=== PATIENT | female | born 1930 | race Caucasian/White ===

== ENCOUNTER → 2016-07-03 | Outpatient (CLI) | payer OTHER, MEDICARE | LOC: BHFA 10:45 | PROVIDERS: ATTEND Internal Medicine Cardiovascular Disease | DX: I48.91 Unspecified atrial fibrillation (principal); R06.02 Shortness of breath; I50.32 Chronic diastolic (congestive) heart failure; I27.2 Other secondary pulmonary hypertension; R53.83 Other fatigue ==

== ENCOUNTER → 2016-07-27 | Outpatient (CLI) | payer OTHER, MEDICARE | LOC: BHFA 14:45 | PROVIDERS: ATTEND Internal Medicine Cardiovascular Disease | DX: I48.91 Unspecified atrial fibrillation (principal) ==

== ENCOUNTER → 2016-11-01 | Outpatient (CLI) | payer OTHER, MEDICARE | LOC: FIMAGING 11:40 | PROVIDERS: ATTEND Internal Medicine Cardiovascular Disease | DX: I82.A22 Chronic embolism and thrombosis of left axillary vein (principal); I82.B22 Chronic embolism and thrombosis of left subclavian vein ==

== ENCOUNTER 2016-12-25 15:38 | Emergency (ER) | payer OTHER, MEDICARE ==
--- NOTE | 2016-12-25 16:03 | CPEKG ---
Heart Rate: 61 RR Interval: 984 QRSD Interval: 152 QT Interval: 468 QTC Interval: 472 QRS [place]: 242 T Wave [place]: 102 EKG Severity - ABNORMAL ECG - EKG Impression: AFIB/FLUTTER AND VENTRICULAR-PACED RHYTHM Electronically Signed By: Woody Birch 25-Dec-2016 18:35:20
--- NOTE | 2016-12-25 16:43 | EDPHY ---
H & P Time Seen by Provider: 12/25/16 16:40 HPI/ROS: Chief complaint. Dizziness HPI. Patient is a 86-year-old female with 1 week history of nausea and dizziness. No vomiting. Dizziness is worse with turning her head as well as trying to stand. She feels off balance and needing to hold onto something to walk. No headache. No change in her vision. She saw her PCP for this today and was referred to the emergency department. They did a urinalysis which was normal in the office. The patient has no chest pain or shortness of breath. She has not had fever or trauma. No abdominal pain though is nauseated. No similar symptoms previously. 6 weeks ago a new medication for pulmonary hypertension was added called opsumit though she has been taking this for 6 weeks and has only had the dizziness for the past 1 week. ROS Constitutional. no fever/chills, no weakness Eyes. no problems with vision ENT. no sore throat, no nasal drainage Cardiovascular. no chest pain Respiratory. no shortness of breath, no cough Abdominal. Nauseated without abdominal pain, vomiting, diarrhea . no problems urinating MS. no calf pain/swelling, no neck/back pain, no joint pain Skin. no rash Lymph. no swollen glands Neuro. Dizzy and off balance Past Medical/Surgical History: Past medical history significant for atrial fibrillation and she is on Pradaxa. Cholecystectomy, kidney stent, pulmonary hypertension, MA, CVA Social History: , nonsmoker, no alcohol Smoking Status: Never smoked Physical Exam: General Appearance: Alert pleasant well-developed female mild distress vital signs are stable. She is afebrile Eyes: Pupils equal and round no pallor or injection. There is no vertical or horizontal nystagmus present ENT, Mouth: Mucous membranes are moist. Respiratory: There are no retractions, lungs are clear to auscultation. Cardiovascular: Regular rate and rhythm. Gastrointestinal: Abdomen is soft and nontender, no masses, bowel sounds normal. Neurological: Awake and alert, sensory and motor exams grossly normal. Skin: Warm and dry, no rashes. Musculoskeletal: Neck is supple nontender. Extremities symmetrical, full range of motion. Psychiatric: Patient is oriented X 3, there is no agitation. Constitutional: Initial Vital Signs Temperature (C) 36.5 C 12/25/16 15:41 Heart Rate 70 12/25/16 15:41 Respiratory Rate 20 08/08/17 15:41 Blood Pressure 123/63 H 12/25/16 15:41 O2 Sat (%) 94 12/25/16 15:41 O2 Delivery Mode Nasal Cannula O2 (L/minute) 6 Allergies/Adverse Reactions: No Known Allergies Allergy (Verified 12/25/16 15:41) Home Medications: Medication Instructions Recorded Acetaminophen [Acetaminophen Extra 1,000 mg PO Q8 PRN 06/17/15 Strength] Calcium Carbonate [Oyster Shell 500 mg PO HS 06/17/15 Calcium 500 mg (*)] Cholecalciferol Vit D3 [Vitamin D3 5,000 units PO HS 06/17/15 (*)] DIVALPROEX SODIUM 250 mg PO BID 06/17/15 Dabigatran Etexilate Mesyl 75 mg PO BID 06/17/15 [Pradaxa 75 MG (RX)] Digoxin [Digox] 0.125 mg PO Q2D 06/17/15 Ferrous Sulfate [Ferrous Sulf 325 325 mg PO HS 06/17/15 MG (*)] HYDRALAZINE HCL 10 mg PO BID 06/17/15 Magnesium Oxide [Magnesium Oxide 400 mg PO HS 06/17/15 400 mg (*)] Potassium Chloride [POTASSIUM 10 meq PO DAILY 06/17/15 CHLORIDE] Riociguat [Adempas] 1.5 mg PO TID 06/17/15 VITAMIN B COMP W-C [BEE WITH C] 1 each PO HS 06/17/15 Furosemide [Lasix] 20 mg PO BID #60 tablet 06/21/15 Hydrocodone/APAP 5/325 [Roxie 1 - 2 tab PO Q6H PRN #20 tab 06/21/15 5/325] levOFLOXACIN 750 mg PO DAILY #3 tab 06/21/15 Meclizine HCl [Meclizine HCl 25 mg 25 mg PO TID PRN #10 tab 12/25/16 (RX,OTC)] Medical Decision Making - Diagnostics EKG Interpretation: EKG interpreted by me shows underlying atrial fibrillation/flutter. This is a ventricular paced rhythm. There is left axis deviation and intraventricular conduction delay. No significant ST elevation or depression. The ventricular response is 61 Imaging Results: Imaging Impressions Head CT 12/25/16 17:18 Impression: Elderly brain with atrophy and probable white matter small vessel disease. Negative for acute abnormality, specifically, no intracranial bleed. Results called and discussed with BALTA SIERRA M.D. on 12/25/2016 at 17:[address] reviewed by me and discussed with Dr. Pate shows atrophy but no evidence for CVA or intracranial bleeding Procedures: IV normal saline, monitor Zofran, meclizine ED Course/Re-evaluation: Re-evaluation at 6:30 p.m. patient is feeling much better. I sat her up and she has only minimal dizziness. We will road test the patient. The patient, her daughter, and I discussed imaging and lab results. Patient is ambulated using a wheelchair is a substitution for her walker and she does well. She feels well and feels well enough to go home. Patient, her daughter, and I discussed treatment plan including criteria for return and importance of follow-up and further evaluation. They expressed understanding and agreement Differential Diagnosis: I considered arrhythmia, electrolyte abnormality, intracranial bleeding, CVA. - Data Points Laboratory Results: Laboratory Results 12/25/16 16:50 12/25/16 16:50 12/25/16 12/25/16 12/25/16 16:50 16:50 16:50 WBC 5.22 10^3/uL 10^3/uL (3.80-9.50) RBC 4.09 10^6/uL L 10^6/uL (4.18-5.33) Hgb 13.2 g/dL g/dL (12.6-16.3) Hct 40.5 % % (38.0-47.0) MCV 99.0 fL fL (81.5-99.8) MCH 32.3 pg pg (27.9-34.1) MCHC 32.6 g/dL g/dL (32.4-36.7) RDW 14.4 % % (11.5-15.2) Plt Count 107 10^3/uL L 10^3/uL (150-400) MPV 11.2 fL fL (8.7-11.7) Neut % (Auto) 62.8 % % (39.3-74.2) Lymph % (Auto) 27.4 % % (15.0-45.0) [place] % (Auto) 6.5 % % (4.5-13.0) Eos % (Auto) 2.5 % % (0.6-7.6) Baso % (Auto) 0.6 % % (0.3-1.7) Nucleat RBC Rel Count 0.0 % % (0.0-0.2) Absolute Neuts (auto) 3.28 10^3/uL 10^3/uL (1.70-6.50) Absolute Lymphs (auto) 1.43 10^3/uL 10^3/uL (1.00-3.00) Absolute Monos (auto) 0.34 10^3/uL 10^3/uL (0.30-0.80) Absolute Eos (auto) 0.13 10^3/uL 10^3/uL (0.03-0.40) Absolute Basos (auto) 0.03 10^3/uL 10^3/uL (0.02-0.10) Absolute Nucleated RBC 0.00 10^3/uL 10^3/uL (0-0.01) Immature Gran % 0.2 % % (0.0-1.1) Immature Gran # 0.01 10^3/uL 10^3/uL (0.00-0.10) PT 17.5 SEC H SEC (12.0-15.0) INR 1.44 H (0.83-1.16) Sodium 143 mEq/L mEq/L (134-144) Potassium 4.2 mEq/L mEq/L (3.5-5.2) Chloride 98 mEq/L mEq/L (97-110) Carbon Dioxide 31 mEq/l mEq/l (22-31) Anion Gap 14 mEq/L mEq/L (8-16) BUN 29 mg/dL H mg/dL (7-23) Creatinine 1.4 mg/dL H mg/dL (0.6-1.0) Estimated GFR 35 Glucose 106 mg/dL H mg/dL (70-100) Calcium 9.9 mg/dL mg/dL (8.5-10.4) Troponin I 0.022 ng/mL ng/mL (0-0.034) Medications Given: Discontinued Medications Meclizine HCl (Meclizine Hcl) 25 mg PO EDNOW ONE Stop: 12/25/16 17:19 Last Admin: 12/25/16 17:47 Dose: 25 mg Ondansetron HCl (Zofran) 4 mg IVP EDNOW ONE Stop: 12/25/16 17:18 Last Admin: 12/25/16 17:47 Dose: 4 mg Departure - Departure Disposition: Home, Routine, Self-Care Clinical Impression: Vertigo Condition: Good Instructions: Vertigo (ED) Additional Instructions: Continue regular medications. Meclizine as needed for dizziness. Return for worsening symptoms. Recheck with Dr. Pinto in 2 days if not improved Referrals: Katelyn Pinto MD [Primary Care Provider] - 2-3 days, if not improved Prescriptions: Meclizine HCl [Meclizine HCl 25 mg (RX,OTC)] 25 mg PO TID PRN #10 tab PRN Reason: Dizziness
[2016-12-25] MEDS ORDERED: ONDANSETRON 4 MG/2 ML VIAL IVP ONE (17:17)
[2016-12-25] MEDS ORDERED: MECLIZINE HCL 25 MG TAB PO ONE (17:18)
[2016-12-25 17:25] LABS: % IMMATURE GRANULYOCYTES 0.2 % (0.0-1.1); ABSOLUTE IMMATURE GRANULOCYTES 0.01 10^3/uL (0.00-0.10); ADD DIFF? NO; ADD MORPH? NO; ADD SCAN? NO; ATYPICAL LYMPHOCYTE FLAG 0 (0-99); FRAGMENT RBC FLAG 0 (0-99); HEMATOCRIT 40.5 % (38.0-47.0); HEMOGLOBIN 13.2 g/dL (12.6-16.3); LEFT SHIFT FLG 0 (0-99); LIPEMIA HEMOLYSIS FLAG 80 (0-99); MEAN CELL HEMOGLOBIN 32.3 pg (27.9-34.1); MEAN CELL HEMOGLOBIN CONCENTR. 32.6 g/dL (32.4-36.7); MEAN PLATELET VOLUME 11.2 fL (8.7-11.7); PLATELET CLUMPS FLAG 0 (0-99); PLATELET COUNT 107 10^3/uL (150-400); RED BLOOD CELL COUNT 4.09 10^6/uL (4.18-5.33); RED CELL DISTRIBUTION WIDTH 14.4 % (11.5-15.2)
[2016-12-25 17:32] LABS: ANION GAP 14 mEq/L (8-16); CALCIUM 9.9 mg/dL (8.5-10.4); CARBON DIOXIDE 31 mEq/l (22-31); CHLORIDE 98 mEq/L (97-110); CREATININE 1.4 mg/dL (0.6-1.0); GLOMERULAR FILTRATION RATE 35; GLUCOSE 106 mg/dL (70-100); POTASSIUM 4.2 mEq/L (3.5-5.2); SODIUM 143 mEq/L (134-144)
[2016-12-25 17:39] LABS: INR 1.44 (0.83-1.16); PROTIME(PATIENT) 17.5 SEC (12.0-15.0)
[2016-12-25 17:44] LABS: TROPONIN I 0.022 ng/mL (0-0.034)
[2016-12-25 17:50] VITALS: BP 122/58; PULSE 62; RESP 18; TEMP 97.9; O2SAT 95
== END 2016-12-25 19:24 | disposition home or self-care (01) ==
DX: R42 Dizziness and giddiness (principal); I10 Essential (primary) hypertension; I25.2 Old myocardial infarction; Z86.73 Personal history of transient ischemic attack (TIA), and cerebral infarction without residual deficits
CPT/HCPCS: 70450; 93005; 96374; 99285; J2405

== ENCOUNTER 2017-07-20 11:42 | Inpatient (IN) | payer OTHER, MEDICARE ==
--- NOTE | 2017-07-20 11:59 | EDPHY ---
H & P Time Seen by Provider: 07/20/17 11:59 HPI/ROS: CHIEF COMPLAINT: Shortness of breath HISTORY OF PRESENT ILLNESS: Patient is pulmonary hypertension and atrial fibrillation and history of pulmonary embolism, currently on Xarelto. She has not missed any recent doses. She has had worsening shortness of breath the last 3 days with a mild cough. Symptoms are severe and worse with exertion. Really severely short of breath just getting out of her wheelchair. Not associated with chest pain or leg swelling or hemoptysis. No fever or chills. REVIEW OF SYSTEMS: Eye: no change in vision ENT: no sore throat, recent left ear infection with tube placement, has bilateral hearing aids Cardiac: Chest pain only with coughing, no palpitations or syncope. Pulmonary: HPI Abdomen: no vomiting, diarrhea, abdominal pain, decreased appetite Musculoskeletal: no back pain Skin: no rash Neuro: no headache Constitutional: no fever : no urinary symptoms A comprehensive 10 point review of systems is otherwise negative aside from elements mentioned in the history of present illness. PAST MEDICAL HISTORY: Includes pulmonary hypertension, cholecystectomy, atrial fibrillation, pulmonary embolus, myocardial infarction. Social history: Here with her daughter, she lives with her. Primary care Dr. Gamino at [facility], environmental geologist is Tone Dixon. General Appearance: Alert and conversant, cooperative. Eyes: No scleral icterus. ENT, Mouth: Normal mucous membranes. Respiratory: Decreased breath sounds bilaterally with right lower lung crackles. Cardiovascular: Regular rate and rhythm. Gastrointestinal: Abdomen is soft and non tender. Neurological: Alert, face symmetric, normal motor and sensory in extremities. Skin: Warm and dry, no rashes. Musculoskeletal: No peripheral edema. Psychiatric: Not agitated. Emergency Department course/MDM: Supplemental oxygen applied, plan for chest x-ray, labs to include troponin and BNP, blood cultures and lactate screening, influenza. Pulmonary embolism considered but thought to be unlikely as she is currently anticoagulated on Xarelto. 1340: Chest x-ray reviewed with radiologist Margie and patient and daughter on the computer system. Likely right lower lung pneumonia. Has not been hospitalized in 2 and half years. Possibility of CHF also considered. Does not have SIRS criteria. IV Levaquin 750, small fluid bolus. The BNP is noted to be elevated but is same or lower as previous levels. Smoking Status: Never smoked Constitutional: Initial Vital Signs Temperature (C) 36.5 C 07/20/17 11:49 Heart Rate 62 07/20/17 11:49 Respiratory Rate 20 07/20/17 11:49 Blood Pressure 151/66 H 07/20/17 11:49 O2 Sat (%) 88 L 07/20/17 11:49 O2 Delivery Mode Nasal Cannula O2 (L/minute) 6 Allergies/Adverse Reactions: No Known Allergies Allergy (Verified 07/20/17 11:52) Home Medications: Medication Instructions Recorded Acetaminophen [Acetaminophen Extra 1,000 mg PO Q8 PRN 06/17/15 Strength] Cholecalciferol Vit D3 [Vitamin D3 5,000 units PO HS 06/17/15 (*)] Digoxin [Digox] 0.125 mg PO Q2D 06/17/15 Ferrous Sulfate [Ferrous Sulf 325 325 mg PO HS 06/17/15 MG (*)] Magnesium Oxide [Magnesium Oxide 400 mg PO HS 06/17/15 400 mg (*)] Potassium Chloride [POTASSIUM 10 meq PO DAILY 06/17/15 CHLORIDE] Riociguat [Adempas] 2.5 mg PO TID 06/17/15 VITAMIN B COMP W-C [BEE WITH C] 1 each PO HS 06/17/15 Furosemide [Lasix] 30 mg PO DAILY 07/20/17 Opsumit 10 mg PO DAILY 07/20/17 Xarelto 15 mg PO DAILY 07/20/17 Medical Decision Making - Diagnostics EKG Interpretation: 12-lead EKG interpreted by me; official reading is in trace master. My interpretation is atrial fibrillation in V paced rhythm rate 65. Imaging Results: Imaging Impressions Chest X-Ray 07/20/17 12:05 Impression: 1. Right middle lobe pneumonia. 2. Chronic interstitial pulmonary fibrosis. 3. Mild interstitial pulmonary edema. 4. Pacemaker without pneumothorax. Findings and recommendations discussed with emergency department physician, Stephon Siu MD at 1323 hours on July 20, 2017. Final report concurs with initial preliminary interpretation. chest xray shows RLL pneumonia Imaging: I viewed and interpreted images myself Differential Diagnosis: Differential diagnosis considered for shortness of breath including but not limited to pulmonary infectious process, COPD, asthma, pulmonary embolus and congestive heart failure. Consult/Admit Bed Type: [place] [id number] - Data Points Laboratory Results: Laboratory Results 07/20/17 12:10 07/20/17 12:10 07/20/17 07/20/17 07/20/17 12:10 12:10 12:10 WBC RBC Hgb Hct MCV MCH MCHC RDW Plt Count MPV Neut % (Auto) Lymph % (Auto) [place] % (Auto) Eos % (Auto) Baso % (Auto) Nucleat RBC Rel Count Absolute Neuts (auto) Absolute Lymphs (auto) Absolute Monos (auto) Absolute Eos (auto) Absolute Basos (auto) Absolute Nucleated RBC Immature Gran % Immature Gran # VBG Lactic Acid 1.1 mmol/L mmol/L (0.7-2.1) Sodium Potassium Chloride Carbon Dioxide Anion Gap BUN Creatinine Estimated GFR Glucose Calcium Troponin I NT-Pro-B Natriuret Pep Procalcitonin 0.07 ng/mL ng/mL (0.02-0.10) Nasal Influenza A PCR NEGATIVE FOR FLU A (NEGATIVE) Nasal Influenza B PCR NEGATIVE FOR FLU B (NEGATIVE) 07/20/17 07/20/17 12:10 12:10 WBC 5.63 10^3/uL 10^3/uL (3.80-9.50) RBC 3.52 10^6/uL L 10^6/uL (4.18-5.33) Hgb 10.7 g/dL L g/dL (12.6-16.3) Hct 33.3 % L % (38.0-47.0) MCV 94.6 fL fL (81.5-99.8) MCH 30.4 pg pg (27.9-34.1) MCHC 32.1 g/dL L g/dL (32.4-36.7) RDW 15.4 % H % (11.5-15.2) Plt Count 141 10^3/uL L 10^3/uL (150-400) MPV 10.7 fL fL (8.7-11.7) Neut % (Auto) 68.3 % % (39.3-74.2) Lymph % (Auto) 21.3 % % (15.0-45.0) [place] % (Auto) 6.6 % % (4.5-13.0) Eos % (Auto) 3.2 % % (0.6-7.6) Baso % (Auto) 0.4 % % (0.3-1.7) Nucleat RBC Rel Count 0.0 % % (0.0-0.2) Absolute Neuts (auto) 3.85 10^3/uL 10^3/uL (1.70-6.50) Absolute Lymphs (auto) 1.20 10^3/uL 10^3/uL (1.00-3.00) Absolute Monos (auto) 0.37 10^3/uL 10^3/uL (0.30-0.80) Absolute Eos (auto) 0.18 10^3/uL 10^3/uL (0.03-0.40) Absolute Basos (auto) 0.02 10^3/uL 10^3/uL (0.02-0.10) Absolute Nucleated RBC 0.00 10^3/uL 10^3/uL (0-0.01) Immature Gran % 0.2 % % (0.0-1.1) Immature Gran # 0.01 10^3/uL 10^3/uL (0.00-0.10) VBG Lactic Acid Sodium 144 mEq/L mEq/L (135-145) Potassium 4.2 mEq/L mEq/L (3.5-5.2) Chloride 106 mEq/L mEq/L (97-110) Carbon Dioxide 28 mEq/l mEq/l (22-31) Anion Gap 10 mEq/L mEq/L (8-16) BUN 22 mg/dL mg/dL (7-23) Creatinine 1.2 mg/dL H mg/dL (0.6-1.0) Estimated GFR 42 Glucose 92 mg/dL mg/dL (70-100) Calcium 9.7 mg/dL mg/dL (8.5-10.4) Troponin I 0.018 ng/mL ng/mL (0.000-0.034) NT-Pro-B Natriuret Pep 5460 pg/mL H pg/mL (0-450) Procalcitonin Nasal Influenza A PCR Nasal Influenza B PCR Medications Given: Discontinued Medications Sodium Chloride (Ns) 500 mls @ 1,000 mls/hr IV EDNOW ONE PRN Reason: Protocol Stop: 07/20/17 13:48 Last Admin: 07/20/17 13:31 Dose: 500 mls Levofloxacin/Dextrose (Levaquin 750 Mg (Premix)) 150 mls @ 100 mls/hr IV EDNOW ONE PRN Reason: Protocol Stop: 07/20/17 14:48 Last Admin: 07/20/17 13:30 Dose: 150 mls Departure - Departure Disposition: [facility] Acute Clinical Impression: Pneumonia Qualifiers: Pneumonia type: due to unspecified organism Laterality: right Lung location: lower lobe of lung Qualified Code(s): J18.1 - Lobar pneumonia, unspecified organism Condition: Fair
--- NOTE | 2017-07-20 12:14 | CPEKG ---
Heart Rate: 65 RR Interval: 923 QRSD Interval: 160 QT Interval: 472 QTC Interval: 491 QRS [place]: 237 T Wave [place]: 93 EKG Severity - ABNORMAL ECG - EKG Impression: AFIB/FLUTTER AND VENTRICULAR-PACED RHYTHM Electronically Signed By: Stephon Siu 20-Jul-2017 12:25:03
[2017-07-20 12:36] LABS: PLATELET COUNT 141 10^3/uL (150-400)
[2017-07-20] MEDS ORDERED: NS 500 ML IV ONE (13:19)
--- NOTE | 2017-07-20 14:14 | ASMTLACE ---
SHAYNA Acuity / Level of Answers: Yes Care: Did the patient have an inpatient admission? Comorbidities - select Answers: Chronic pulmonary disease all that apply Previous myocardial infarction # of Emergency department Answers: 1-2 visits in the last 6 months Score: 7 Date Signed: 07/20/2017 02:13 PM Electronically Signed By:Luisa Garcia RN
--- NOTE | 2017-07-20 14:42 | HOSPPROG ---
Hospitalist Progress Note Assessment/Plan: Chief complaint: Difficulty breathing. History of present illness: The patient is an 87-year-old female with history of pulmonary arterial hypertension who developed worsening shortness of breath and dyspnea on exertion in the last 2-3 days. Prior to this, she reports fatigue/malaise/increasing shortness of breath for 1 week. She used to be able to ambulate 100 yd before she developed dyspnea. Now she gets dyspnea when walking less than 20 ft to go to the bathroom. Denies cough. Denies fevers or chills. She is generally weak. She admits to having a frontal headache. Last month she developed a sinus and left ear infection, for which she took Augmentin for 10 days. She finished this course of antibiotics 3 weeks ago. She also had a tube placed in her left ear by her actuarial intern Dr. Santillan and underwent a sinus CT. She still sometimes has intermittent pain in each ear. Dyspnea is alleviated by resting and using inhaler medication. Dyspnea is aggravated with activity. Patient denies having worsened orthopnea than usual. She uses O2 chronically via nasal cannula, baseline of 5LPM. Past medical history: Pulmonary arterial hypertension, atrial fibrillation, pacemaker, squamous cell carcinoma of the skin, presbycusis s/p hearing aids. Past surgical history: Pacemaker placement. Gall bladder removal, 2 cardiac ablations, ureteral stent. Medications: Please see medication reconciliation form. Allergies: NKA. Social history: Drinks alcohol rarely, never smoker, never used rec drugs. Lives with daughter and son-in-law. Uses a scooter when she goes outside. Family history: F- strokes, blood clots, Alzheimer's. M - kidney problems. Review of systems: 10 point review of systems was conducted and is negative except per HPI PCP: Dr. Saima Gamino at [facility]. Pulm Dr. Nunes. Card Dr. Dixon. Derm - Dr. Fink. ENT - Dr. Wilhelm, Tabitha MG. Pulm HTN Specialist - at [facility]. Physical exam: Vitals: Reviewed Gen: elderly F, alert, oriented, in NAD. HEENT: EOMI, MMM. Dried blood in L EAC. b/l TM intact. No visible tube draining L TM. CV: RRR, no MRG. Resp: bilat breath sounds, +bibasilar rales, +end expiratory wheeze, no rhonchi. Abd: SND. +BS. Nontender. MSK: reduced muscle tone/bulk. Neuro: CN II- XII grossly intact (although hearing is a little diminished) Psych: approp mood/affect. : No visible rash on labia. No vaginal discharge. Heme/lymph: no peripheral edema. Labs: WBC 5.6, hgb 10.7, plt 141. Na144 K4.2 Cl 106 CO2 28 BUN 22 Cr 1.2 Gluc 92 Ca 9.2. Trop 0.018. BNP 5460. INR 1.4 lactic acid 1.1. Other Data: CXR - personally interpreted. b/l lower lobe opacities, RML opacity , mild pulm edema, pacer. EKG - personally interpreted- Vpaced rhythm, similar to prior EKG. Impression and plan: Acute on chronic resp failure, on 6L O2 Community acquired PNA PAH, on chronic O2 -Levaquin given in ED. -Discussed case w/ Pulm who will see pt tomorrow. -Starting ceftazidime for Pseudomonas coverage, doxycycline for atypical coverage. -Consider MRSA coverage w/ Hx Abx use recently, if pt does not improve on Abx above. -Blood cultures pending. -O2 via NC, SVNs -Give some Lasix since she has elevated proBNP. -Consider CT chest to eval lungs better. AF Pacemaker HTN -Continue home meds Skin cancer of L forearm -outpt FU for excision. Vulva itching Urinary incontinence -barrier cream Admitted for observation, med surg. VTE ppx - Xarelto. Code status - DNR. Objective: Vital Signs Temp Pulse Resp BP Pulse Ox 36.5 C 60 18 146/70 H 92 07/20/17 11:49 07/20/17 13:32 07/20/17 13:32 07/20/17 13:32 07/20/17 13:32 ICD10 Worksheet Patient Problems: Problems Problem Status Onset Pneumonia Acute Chronic Disease Mgmt/Transitional Care Acute Lumbar compression fracture Acute
[2017-07-20] MEDS ORDERED: ALBUTEROL 3 ML DEYVIAL IH PRN (15:07)
[2017-07-20] MEDS ORDERED: PROMETHAZINE HCL 25 MG/ML INJ IVP PRN (15:07)
[2017-07-20] MEDS: IPRATROPIUM/ALBUTEROL 3 ML DEYVIAL IH SCH ×3 (16:14→20:40)
[2017-07-20] MEDS: RIOCIGUAT 2.5 MG PO SCH ×2 (17:02→20:26)
[2017-07-20] MEDS: MAGNESIUM OXIDE 400 MG TAB PO SCH (20:26)
[2017-07-20] MEDS: CHOLECALCIFEROL VIT D3 1,000 UNITS TAB PO SCH (20:26)
[2017-07-20] MEDS: ACETAMINOPHEN 325 MG TAB PO PRN (20:26)
[2017-07-20] MEDS: OPSUMIT 10 MG PO SCH (21:02)
[2017-07-21] MEDS ORDERED: cefTAZidime 1 GM/DEXTROSE 50 ML IV SCH (02:30)
[2017-07-21] MEDS: IPRATROPIUM/ALBUTEROL 3 ML DEYVIAL IH SCH ×4 (05:09→20:15)
[2017-07-21 05:32] LABS: PLATELET COUNT 128 10^3/uL (150-400)
[2017-07-21] MEDS ORDERED: ENOXAPARIN 40 MG/0.4 ML SYR SC SCH (09:00)
[2017-07-21] MEDS ORDERED: RIOCIGUAT 2.5 MG PO SCH ×2 (09:00→16:00)
[2017-07-21] MEDS ORDERED: POTASSIUM CHLORIDE 10 MEQ PO SCH (09:00)
[2017-07-21] MEDS ORDERED: FUROSEMIDE 20 MG/2 ML VIAL IVP SCH (09:00)
[2017-07-21] MEDS: DOXYCYCLINE HYCLATE 100 MG CAP/TAB PO SCH ×2 (09:28→20:07)
[2017-07-21] MEDS: RIVAROXABAN 15 MG TAB PO SCH (09:28)
[2017-07-21] MEDS: POTASSIUM CL 10 MEQ TAB PO SCH (09:29)
[2017-07-21] MEDS: RIOCIGUAT 2.5 MG PO SCH ×3 (09:47→20:12)
--- NOTE | 2017-07-21 09:58 | HOSPPROG ---
Hospitalist Progress Note Assessment/Plan: 87-year-old with a history significant for severe pulmonary hypertension presents with increasing shortness of breath. Chest x-ray is notable for increasing right-sided infiltrates. # acute on chronic respiratory failure in the setting of chronic pulmonary hypertension and chronic diastolic heart failure. X-ray looks like pneumonia however she has a negative procalcitonin and has not had any fevers or chills. * Check echo to review pulmonary pressures and right side of her heart * Continue Lasix * Check CT scan without contrast, patient is on chronic anticoagulation * Pulmonary consult * Consider cardiology consult depending on echocardiogram, BNP is stable # chronic diastolic heart failure last echo over a year ago. Primarily showed evidence of severe right-sided failure. * Recheck echo * Continue Lasix monitor renal function closely # atrial fibrillation: Status post pacemaker placement. Patient currently rate controlled and on anticoagulation. # history of chronic thromboembolic disease with a V/Q scan done at [facility] showing large mismatches in the lingula and right lower lobe # recent history of sinusitis status post treatment with Augmentin. She did have a sinus CT done as an outpatient. Followed by Dr. Santillan as outpatient # DVT prophylaxis patient high risk and is on chronic anticoagulation Subjective: Patient new to me and chart reviewed, discussed with Dr. Bateman. Patient states her breathing is still quite labored and no change since admission. She denies any fevers chills. She has had no lower extremity edema but does feel a bit bloated. Objective: Vital Signs Temp Pulse Resp BP Pulse Ox 36.6 C 61 18 133/62 H 98 07/21/17 08:05 07/21/17 08:05 07/21/17 08:05 07/21/17 08:05 07/21/17 08:05 Microbiology 07/20/17 14:00 Respiratory Panel (PCR) - Final Nasal, Sinus - Swab No Organism Detected Laboratory Results 07/21/17 04:58 07/21/17 04:58 07/20/17 07/21/17 07/22/17 05:59 05:59 05:59 Intake Total 950 Output Total 151 Balance 799 - Physical Exam Constitutional: chronically ill appearing, uncomfortable Eyes: PERRL, anicteric sclera, EOMI Ears, Nose, Mouth, Throat: moist mucous membranes, hard of hearing Cardiovascular: regular rate and rhythym, systolic murmur Respiratory: inspiratory crackles (Bilateral lobes right greater than left), respiratory distress Gastrointestinal: normoactive bowel sounds, soft, non-tender abdomen, distension (Mild) Genitourinary: no bladder fullness Skin: No rash Musculoskeletal: generalized weakness Neurologic: AAOx3 Psychiatric: interacting appropriately, not anxious ICD10 Worksheet Patient Problems: Problems Problem Status Onset Pneumonia Acute Chronic Disease Mgmt/Transitional Care Acute Lumbar compression fracture Acute
--- NOTE | 2017-07-21 10:53 | PDMN ---
Medical Necessity Medical necessity: C/M review: est. > 2 MN LOS for eval and TX of acute and persistent hypoxic respiratory failure in the setting of chronic pulmonary hypertension and chronic diastolic heart failure, labored breathing, CXR looks like pneumonia, no fevers, chills, negative procalcitonin, increasing shortness of breath, requiring planned Pulmonary consult, 07/21/[address], echocardiogram, consider Cardiology consult depending on echocardiogram, ongoing IV Lasix, IV Cefepime, Duonebs, cardiac monitoring, pulse oximetry, supplemental O2, comorbid atrial fibrillation, history of chronic thromboembolic disease, recent sinusitis and treatment with Augmentin per 2017 Hospitalist progress note.
[2017-07-21] MEDS: DIGOXIN 125 MCG TAB PO SCH (11:40)
[2017-07-21] MEDS: ACETAMINOPHEN 325 MG TAB PO PRN (12:48)
[2017-07-21] MEDS ORDERED: LORazepam 0.5 MG TAB PO PRN (14:37)
--- NOTE | 2017-07-21 15:40 | ECHO ---
[email or web address] [address] Main: [phone] Fax: Transthoracic Echocardiogram Name: ADONAY SAUCEDA MR#: [id number] Study Date: 07/21/2017 Study Time: 11:12 AM Date of : 1930 Age: 87 year(s) Height: 165.1 cm (65 in.) Weight: 58.51 kg (129 lb.) BSA: 1.64 m2 Gender: Female Examination: Echo Indication: CHF/hx of pulmonary HTN, Pacer Image Quality: Contrast: Requested by: Shazia Garces BP: 133 mmHg/62 mmHg Heart Rate: Rhythm: Indication: CHF/hx of pulmonary HTN, Pacer Procedure Staff Digital Traffic Coordinator: Thalia Morrow [facility] Reading Physician: Jone Johnson MD Requesting Provider: Conclusions: Asymmetrical septal LV hypertrophy. The ejection fraction is estimated to be 70-75 %. Diastolic dysfunction is present. . Moderately dilated right ventricle. Moderately reduced RV function. Flattened interventricular septum consistent with right ventricular pressure and/or volume overload septum. The left atrium is severely dilated. The right atrium is severely dilated. Moderate tricuspid regurgitation is present. The pulmonary artery pressure is severely increased. RAP 20 mmHg. Left side pleural effusion. Measurements: Chambers Valvular Assessment AV/MV Valvular Assessment TV/PV Normal Normal Normal Name Value Range Name Value Range Name Value Range Ao Nighat (MM): 4.0 cm (2.2 cm-3.7 AV meanP mmHg ( - ) TR Vmax: 4.45 mm/s ( - ) cm) MV E Vmax: 1.23 m/s ( - ) TR PGmax: 79 mmHg ( - ) IVSd (2D): 1.1 cm (0.6 cm-1.1 MV A Vmax: 0.22 m/s ( - ) syst. PAP: 99 mmHg ( - ) cm) MV E/A: 5.59 ( - ) LVDd (2D): 4.8 cm (3.9 cm-5.3 cm) LVDs (2D): 2.3 cm (2.1 cm-4 cm) LVPWd (2D): 0.5 cm ( - ) LVEF (MOD4): 76 % (>=55 %) EF Range: 70-75 % Patient: ADONAY SAUCEDA Study Date: 07/21/2017 Page 1 of 2 11:12 AM Continued Measurements: Chambers Valvular Assessment AV/MV Valvular Assessment TV/PV Name Value Name Value Name Value LADs: 4.9 cm MV E/E' Septal: 24.70 CVP (est.): 20 mmHg LADs Lon.6 cm MV E/E' Lateral: 23.80 LA Area: 29.3 cm2 Additional Vessels Name Value Inferior Vena Cava: 3.1 cm Findings: Left Ventricle: Normal size left ventricle. Asymmetrical septal LV hypertrophy. Normal global systolic LV function. The ejection fraction is estimated to be 70-75 %. No regional wall motion abnormality. Diastolic dysfunction is present. . Right Ventricle: Moderately dilated right ventricle. Moderately reduced RV function. There is a pacemaker lead noted in the right ventricle. Flattened interventricular septum consistent with right ventricular pressure and/or volume overload septum. Left Atrium: The left atrium is severely dilated. Right Atrium: The right atrium is severely dilated. Mitral Valve: The mitral valve is normal in appearance and function. Mild mitral valve regurgitation is present. Aortic Valve: The aortic valve is normal in appearance and function. Mild aortic cusp calcification is noted. Tricuspid Valve: The tricuspid valve is normal in appearance and function. Moderate tricuspid regurgitation is present. The pulmonary artery pressure is severely increased. RVSP is 98mmHG.. Pulmonic Valve: The pulmonic valve is normal in appearance and function. Trivial pulmonic valve regurgitation. Aorta: Mildly dilated aortic root measuring 4.0 cm. IVC: The IVC is moderately dilated. RAP 20 mmHg. Pericardium: No pericardial effusion. Left side pleural effusion. (No Signature Object) Patient: ADONAY SAUCEDA Study Date: 07/21/2017 Page 2 of 2 11:12 AM [id number]
[2017-07-21] MEDS ORDERED: FUROSEMIDE 20 MG/2 ML VIAL IVP ONE (16:33)
--- NOTE | 2017-07-21 16:34 | ASMTCMCOM ---
CM Note CM Note Notes: 87yr old female admitted for Respiratory failure, PNA, CHF, Lumbar compression fx. She has a hx of Pulm HTN, HTN, Afib, pacer, [place], Chronic O2-5 lits, recent sinus and ear infection w/ABX. Patient is DNR status. Daughter and son-in-law live with patient. Patient c/o weakness. PT eval recommends HC. CM to follow. Date Signed: 07/21/2017 04:34 PM Electronically Signed By:Diandra Gao LCSW
--- NOTE | 2017-07-21 17:17 | GCON ---
[f rep st] CONSULTATION PULMONARY/CRITICAL CARE CONSULTATION DATE OF CONSULTATION: 07/21/2017 REFERRING PHYSICIAN: Shazia Garces MD REASON FOR CONSULTATION: Evaluation and management of dyspnea and pulmonary hypertension. HISTORY: The patient is an 87-year-old woman with a history of severe pulmonary hypertension, who was admitted to the hospital yesterday with increased shortness of breath over the past few weeks, particularly over the past week. She used to be able to walk about 100 yards before developing dyspnea, but now is getting dyspnea just walking around her house. She denies cough, fever, or chills, has not had increased edema. She is fairly comfortable on oxygen at rest. She uses oxygen at all times. She checks her oxygen saturations, and they are usually adequate. She lives about [place] feet above [place]. PAST MEDICAL HISTORY: 1. 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 She had a pulmonary embolism in 1984, and was followed in the [facility]. She moved to [place] in 2015, and was seen down at the [facility]. She has been followed by Dr. Palacios. She started seeing Dr. Nunes here in [place] about 6 months ago. She has been treated with macitentan and riociguat. Her last echo in January 2017 showed a normal RV function with an estimated PA pressure of 67. 2. Chronic kidney disease, stage 4. 3. Diastolic left congestive heart failure. 4. Factor 5 Leiden mutation, heterozygous. 5. Chronic atrial fibrillation, status post pacemaker. MEDICATIONS: Riociguat, macitentan, and furosemide 30 mg daily, oxygen at 5 L/ minute. ALLERGIES: None. SOCIAL HISTORY: The patient never smoked and drinks alcohol rarely. She lives with her daughter. She uses a scooter when she gets about. FAMILY HISTORY: Positive for blood clots and strokes. REVIEW OF SYSTEMS: A 10-point review of systems adds nothing to the history of present illness. PHYSICAL EXAMINATION: GENERAL: The patient is awake, alert, in no acute distress. VITAL SIGNS: Blood pressure 149/59, with a heart rate of 61. She is afebrile. Oxygen saturations are 95% on 6 L. HEENT: Normocephalic and atraumatic. No icterus. NECK: No JVD. Trachea is midline. CHEST: She has decreased breath sounds in the bases. CARDIAC: Regular rate and rhythm without murmur. Her JVP is elevated at 14 cm. ABDOMEN: Soft, nontender. Bowel sounds are present. EXTREMITIES: No clubbing, cyanosis, or edema. LABORATORY: Hemoglobin is 10.4. Chemistry group is remarkable for a sodium of 146. Creatinine is 1.3, up from 1.2. BNP is 5,460. This is similar to a value drawn 6 weeks ago, and lower than values drawn in 2016. A CT scan of the chest shows chronic pleural and parenchymal thickness in the right hemithorax, with some mild interstitial changes. These changes look almost identical to her CT scan from 2016. There is a tiny left pleural effusion and 4-chamber cardiomegaly. An echocardiogram from 07/21 demonstrates normal global systolic LV function with ejection fraction of 70%-75%. Her RV is moderately dilated with moderately reduced function. Her estimated RVSP is 98 mmHg, with an estimated right atrial pressure of 20 mmHg. ASSESSMENT: 1. Dyspnea. I think this is most likely related to the patient's pulmonary hypertension, with a marked increase in the estimated pulmonary hypertension on the echocardiogram. She does not have symptoms of a respiratory tract infection , and her CT scan does not suggest pneumonia. 2. Pulmonary hypertension. The patient's pulmonary artery pressures are markedly increased compared to her echocardiogram from several months ago. Part of this is based on an increase in the estimated CVP from 5 to 20 cm H2O. I suspect that the current elevated estimated RVSP is fairly accurate, as she has significant elevation in her JVP on exam. Apparently, the echocardiogram prior to her echocardiogram in January showed a similarly elevated RVSP in the mid s. I discussed the results of the echocardiogram with the patient and her daughters, and my impression that this is likely the main cause of her dyspnea. While I expect some optimism that we might be able to improve her dyspnea with efforts to decrease her central venous pressure with diuretics, I also expressed some concern that this could be signs of progressive worsening in her severe pulmonary hypertension and right heart failure, which would carry a poor prognosis. RECOMMENDATIONS: 1. Discontinue antibiotics. 2. Increase Lasix. She is on 20 mg IV Lasix. I will give her an additional dose now, and increase her to 40 mg b.i.d. Her creatinine will need to be watched closely. I will also check a set of LFTs to see if she has signs of congestive hepatopathy. I will discuss her case tomorrow (or when he gets back from vacation) with Dr. Nunes to see if he has of further input. Dr. Chiu will be seeing the patient in the meantime. Having Dr. Dixon from Cardiology see her would also be beneficial. 3. Palliative Care consultation. I informed the patient and her daughters that the prognosis for her severe pulmonary HTN is fairly poor, and options for effective treatment may be limited. /[id number]/MODL MTDD
[2017-07-21] MEDS: CHOLECALCIFEROL VIT D3 1,000 UNITS TAB PO SCH (20:08)
[2017-07-21] MEDS: MAGNESIUM OXIDE 400 MG TAB PO SCH (20:09)
[2017-07-21] MEDS: OPSUMIT 10 MG PO SCH (20:11)
[2017-07-21] MEDS ORDERED: CEFEPIME HCL 2 GM in STERILE WATER INJ 12.5 ML IV SCH (21:00)
[2017-07-21] MEDS ORDERED: MACITENTAN 10 MG PO SCH (21:00)
[2017-07-22 04:56] LABS: PLATELET COUNT 123 10^3/uL (150-400)
[2017-07-22] MEDS: IPRATROPIUM/ALBUTEROL 3 ML DEYVIAL IH SCH ×2 (05:23→11:10)
[2017-07-22] MEDS ORDERED: MULTIVITAMINS 1 EACH TAB PO SCH (09:00)
[2017-07-22] MEDS ORDERED: FUROSEMIDE 40 MG/4 ML VIAL IVP SCH (09:00)
[2017-07-22 09:01] VITALS: BP 133/59; TEMP 98.5; O2SAT 95
[2017-07-22] MEDS: POTASSIUM CL 10 MEQ TAB PO SCH (09:46)
[2017-07-22] MEDS: DIGOXIN 125 MCG TAB PO SCH (09:47)
[2017-07-22] MEDS: DOXYCYCLINE HYCLATE 100 MG CAP/TAB PO SCH (09:47)
[2017-07-22] MEDS: RIVAROXABAN 15 MG TAB PO SCH (09:47)
--- NOTE | 2017-07-22 09:59 | ASMTCMCOM ---
CM Note CM Note Notes: Patient and family seen by Palliative Care this am. Patient is to dc home to family with palliative care. Referral to [facility] in [facility]. CM to follow. Date Signed: 07/22/2017 09:58 AM Electronically Signed By:Deb Gonzalez RN
[2017-07-22] MEDS: RIOCIGUAT 2.5 MG PO SCH (10:29)
--- NOTE | 2017-07-22 10:56 | PDIAF ---
- Diagnosis Diagnosis: severe, endstage pulmonary hypertension. Code Status: Do Not Resuscitate - Medication Management Discharge Medications: Medications to Continue on Transfer Acetaminophen [Acetaminophen Extra Strength] 1,000 mg PO Q8 PRN 06/17/15 [Last Taken Unknown] Cholecalciferol Vit D3 [Vitamin D3 (*)] 5,000 units PO MOWEFR 06/17/15 [Last Taken 06/16/15] Digoxin [Digox] 0.125 mg PO SUMOWEFR 06/17/15 [Last Taken 06/17/15] Potassium Chloride [POTASSIUM CHLORIDE] 10 meq PO DAILY 06/17/15 [Last Taken ] VITAMIN B COMP W-C [BEE WITH C] 1 each PO HS 06/17/15 [Last Taken 06/16/15] Furosemide [Lasix] 30 mg PO DAILY 07/20/17 [Last Taken Unknown] Herbals/Supplements -Info Only 1 ea PO DAILY 07/20/17 [Last Taken Unknown] Macitentan 10mg [Opsumit] 1 tab PO HS 07/20/17 [Last Taken Unknown] Multivitamins [Multivitamin (*)] 1 each PO DAILY 07/20/17 [Last Taken Unknown] Riociguat 2.5mg [Adempas] 1 tab PO TID 07/20/17 [Last Taken Unknown] Rivaroxaban [Xarelto 15mg (*)] 15 mg PO DAILY@18 07/20/17 [Last Taken Unknown] Discharge Medications: Refer to the Discharge Home Medication list for PRN reason. - Orders Services needed: Home Care (Palliative care/ halcion) Home Care Face to Face: I certify that this patient was under my care and that I had the required [id number] encounter meeting the encounter requirements on the discharge day. My findings support the fact that the patient is homebound as defined in Home Care Face to Face Continued: CMS Chapter 7 Medicare Benefits Manual 30.1.1 , The condition of the patient is such that there exists a normal inability to leave home and consequently, leaving home would require a considerable and taxing effort. Isolation Type: None Diet Recommendation: no restrictions on diet Diet Texture: Regular Texture Diet - Follow Up Care Current Providers and Referrals: ARLENE HARPER MD [Primary Care Provider] - As per Instructions
--- NOTE | 2017-07-22 11:09 | ASMTCMCOM ---
CM Note CM Note Notes: [facility] accepted patient final orders faxed. [facility] to accept. Patient to dc home with palliative care and family today, CM available should other needs arise. Date Signed: 07/22/2017 11:08 AM Electronically Signed By:Deb Gonzalez RN
[2017-07-22 11:17] VITALS: PULSE 60; RESP 100
--- NOTE | 2017-07-22 11:49 | GDS ---
[f rep st] DISCHARGE SUMMARY DIAGNOSES: 1. 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 2. History of thromboembolic disease, on chronic anticoagulation. 3. Chronic diastolic heart failure. 4. Atrial fibrillation status post pacemaker placement. 5. Recent history of sinusitis, treated with antibiotics. CONSULTATIONS: Pulmonology, Dr. Rocco Bateman. PROCEDURES DONE: 1. Chest CT without contrast, showing chronic pulmonary disease. Findings not significantly changed from previous CT scan. 2. Echocardiogram with increased RVSP of 98. This is an increase from previous echocardiograms. HOSPITAL COURSE: The patient is an 87-year-old with severe pulmonary hypertension. She is followed by Dr. Blane Nunes and Dr. Tone Dixon. She comes in with increasing shortness of breath and was f elt to be slightly fluid overload. Initially, the chest x-ray was interpreted as possible pneumonia. However, she had a negative procal citonin. Followup CT scan was done, which showed similar findings to previous and it was thought thi s was all chronic without an acute infection, so her antibiotics were discontinued. She was treated with some IV Lasix to diurese her and she felt much improved at the time of discharge . She has chronic dyspnea and fluid retention and felt close to baseline. 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 The patient is aware of this and met with Palliative Care, and at this time would like to go home wit h palliative care and that will be set up at the time of discharge. She also felt that a MOLST Form, stating that she would like to be treated for infections with antibiotics and would like to be treat ed for fluid retention with diuresis, but would prefer not to be readmitted to the hospital. CONDITION ON DISCHARGE: Guarded, given her end-stage pulmonary hypertension. However, she continues to be saturating at the low 90s on her usual 6 L. Blood pressure 133/59, heart rate is in the 60s. She is alert and oriented. She does look relatively comfortable, given her chronic disease. DISCHARGE MEDICATIONS: Please see discharge medication form. No medications were changed. FOLLOW UP INSTRUCTIONS: I did relate to Dr. Dixon that she was being discharged from the hospital an d he will have his nurse call her at the end of the week to check in. Dr. Blane Nunes will also be aware of her hospitalization. Total time spent with patient and family at the day of discharge and coordination of care is 35 minut rick. /[id number]/MODL
--- NOTE | 2017-07-22 17:10 | ASDISCHSUM ---
Discharge Information Plan Status:Home with No Needs Medically Cleared to Leave:07/21/2017 Discharge Date:07/22/2017 01:15 PM CM D/C Disposition:Home, Routine, Self-Care ADT D/C Disposition:Home Health Service Projected Discharge Date:07/22/2017 11:00 AM Transportation at D/C: Discharge Delay Reason: Follow-Up Date:07/22/2017 11:00 AM Discharge Slot: Final Diagnosis:Respiratory failure, PNA, CHF, Lumbar compression fx Placement Information Referral Type:Palliative Care Referral ID:[id number] Provider Name:[facility] Address 1:[address] [employer] Phone Number: Address 2: Fax Number: City:[place] Selection Factors: State:[place] Patient Contact Information Contact Name:ALAINA Relationship:Daughter Address:[address] Work Phone: City:[place] Alternate Phone: State/Zip Code:[place] [address] Email: Financial Information Financial Class:Medicare Primary Plan Desc:MEDICARE INPATIENT Primary Plan Number:[id number] Secondary Plan Desc:[employer]/MDR SUPPLEMENT Secondary Plan Number:[id number] Assessment Information LACE LACE Acuity / Level of Answers: Yes Care: Did the patient have an inpatient admission? Comorbidities - select Answers: Chronic pulmonary disease all that apply Previous myocardial infarction # of Emergency department Answers: 1-2 visits in the last 6 months Score: 7 Date Signed: 07/20/2017 02:13 PM Electronically Signed By:Luisa Garcia RN [facility] CM Progress Note CM Note CM Note Notes: 87yr old female admitted for Respiratory failure, PNA, CHF, Lumbar compression fx. She has a hx of Pulm HTN, HTN, Afib, pacer, [place], Chronic O2-5 lits, recent sinus and ear infection w/ABX. Patient is DNR status. Daughter and son-in-law live with patient. Patient c/o weakness. PT eli recommends HC. CM to follow. Date Signed: 07/21/2017 04:34 PM Electronically Signed By:Diandra Gao LCSW [facility] CM Progress Note CM Note CM Note Notes: Patient and family seen by Palliative Care this am. Patient is to dc home to family with palliative care. [facility]. CM to follow. Date Signed: 07/22/2017 09:58 AM Electronically Signed By:Deb Gonzalez RN [facility] CM Progress Note CM Note CM Note Notes: [facility] accepted patient final orders faxed. [facility] to accept. Patient to dc home with palliative care and family today, CM available should other needs arise. Date Signed: 07/22/2017 11:08 AM Electronically Signed By:Deb Gonzalez RN Intervention Information
--- NOTE | 2017-07-25 10:09 | PQFORM ---
PHYSICIAN QUERY FORM Needs Your Response This query form is being sent to you to assure this patient record is coded properly. Please respond to the question below: CREDIT RISK MODELER QUESTION: Dr Garces Acute / Chronic Hypoxic Respiratory Failure was documented in this patients record but not mentioned in the Discharge Summary. Did this patient have A/C Hypoxic Respiratory Failure ? x___ Yes ___ No ___ Unable to Determine ___ Other (please specify ) Thank You Miya ATKINSON Event Planner INSTRUCTIONS FOR RESPONSE: Answer question by clicking on the "Edit Document" button. Move cursor to area below the stars. When complete, hit "Save." Click on the "Sign" button, then click "Sign" again. Type in your PIN and hit "Enter." MTDD
== END 2017-07-22 13:15 | disposition home health service (06) | DRG 189 ==
LOC: INTOOBSV 13:22 → F1N 15:11 → OBSVTOIN 07-21 10:37
PROVIDERS: ADMIT Internal Medicine; ATTEND Internal Medicine
DX: J96.21 Acute and chronic respiratory failure with hypoxia (principal); I27.24 Chronic thromboembolic pulmonary hypertension; I50.32 Chronic diastolic (congestive) heart failure; N18.4 Chronic kidney disease, stage 4 (severe); I48.2 Chronic atrial fibrillation; D68.2 Hereditary deficiency of other clotting factors; I25.10 Atherosclerotic heart disease of native coronary artery without angina pectoris; I25.2 Old myocardial infarction; Z79.01 Long term (current) use of anticoagulants; Z95.0 Presence of cardiac pacemaker; Z99.81 Dependence on supplemental oxygen
CPT/HCPCS: 96365; 97116-GP; 97161-GP; G0378; G8978-GP-CJ; G8979-GP-CI; J0692; J0713; J1940; J1956

== ENCOUNTER 2017-10-15 09:59 | Inpatient (IN) | payer OTHER, MEDICARE ==
[2017-10-15] MEDS ORDERED: NS 1,000 ML IV ONE (10:37)
--- NOTE | 2017-10-15 11:30 | EDPHY ---
HPI/HX/ROS/PE/MDM Narrative: CHIEF COMPLAINT: Bloody diarrhea and dark stools, on anticoagulants HISTORY OF PRESENT ILLNESS: The patient is an anticoagulated (Xarelto) 87 y/o female with a history of atrial fibrillation with pacemaker and pulmonary hypertension arriving for bloody diarrhea and dark stools. Yesterday, she developed bloody diarrhea. This morning she had dark stools that were evaluated by her PCP and determined to have blood in them. She has associated shortness of breath, weakness, and lightheadedness, worse this morning. She denies nausea , vomiting, fever, or any other associated symptoms. No fever, chills, chest pain, palpitations, vomiting, urinary complaints, headache. REVIEW OF SYSTEMS: Aside from elements discussed in the HPI, a comprehensive 10-point review of systems was reviewed and is negative. PAST MEDICAL HISTORY: Pulmonary hypertension, atrial fibrillation, hypertension, pacemaker SOCIAL HISTORY: Daughter at bedside, lives in [place], retired VITAL SIGNS: Reviewed by me GENERAL: Well-developed, well-nourished, resting comfortably in no respiratory distress. HEENT: Atraumatic. Eyes: No icterus, no injection. Mouth: moist mucous membranes. No erythema or lesions. Neck: supple with no adenopathy. LUNGS: End expiratory squeaks, no wheezes, rhonchi or rales. CARDIAC: Paced regular rate and rhythm, no rubs, murmurs or gallops. ABDOMEN: Soft, nontender, nondistended, bowel sounds normal. BACK: No CVA tenderness. EXTREMITIES: No trauma. No edema. Range of motion is normal throughout. NEURO: Alert and oriented, grossly nonfocal. SKIN: Warm and dry, no rash. PSYCHIATRIC: Normal mentation, no agitation. RECTAL: No hemorrhoids. Dark, melanotic stool on glove. ED Course: 12-LEAD EKG: Please see the full report in [facility]. My interpretation: Afib/flutter and ventricular paced rhythm The patient presents with blood in her stool. She experienced bloody diarrhea yesterday morning and had dark stool this morning that tested positive for the presence of blood. She has associated shortness of breath and weakness. Rectal exam showed red blood. Plan for EKG, UA, 1L NS fluids and admission. She will be admitted to the hospital. The family agrees to this course of action. MDM: Diff dx considered included but not limited to peptic ulcer disease, upper gi hemorrhage, diverticular bleeding, hemorrhoids, anal fissure, gastritis with bleeding, over anticoagulated. 12:25 p.m.: Case discussed with Dr. Peo from [facility]. She recommends NPO, start a PPI, and she will plan to scope in the morning most likely. - Data Points Laboratory Results: Laboratory Results 10/15/17 11:30 10/15/17 11:30 10/15/17 10/15/17 10/15/17 11:30 11:30 11:30 WBC RBC Hgb Hct MCV MCH MCHC RDW Plt Count MPV Neut % (Auto) Lymph % (Auto) [place] % (Auto) Eos % (Auto) Baso % (Auto) Nucleat RBC Rel Count Absolute Neuts (auto) Absolute Lymphs (auto) Absolute Monos (auto) Absolute Eos (auto) Absolute Basos (auto) Absolute Nucleated RBC Immature Gran % Immature Gran # PT INR Sodium Potassium Chloride Carbon Dioxide Anion Gap BUN Creatinine Estimated GFR Glucose Calcium Total Bilirubin Conjugated Bilirubin Unconjugated Bilirubin AST ALT Alkaline Phosphatase Troponin I 0.018 ng/mL ng/mL (0.000-0.034) Total Protein Albumin Lipase Stool Occult Bld Scrn POSITIVE H (NEGATIVE) Patient ABO/Rh A POSITIVE Antibody Screen NEGATIVE 10/15/17 10/15/17 10/15/17 11:30 11:30 11:30 WBC 4.10 10^3/uL 10^3/uL (3.80-9.50) RBC 3.42 10^6/uL L 10^6/uL (4.18-5.33) Hgb 10.2 g/dL L g/dL (12.6-16.3) Hct 31.7 % L % (38.0-47.0) MCV 92.7 fL fL (81.5-99.8) MCH 29.8 pg pg (27.9-34.1) MCHC 32.2 g/dL L g/dL (32.4-36.7) RDW 15.9 % H % (11.5-15.2) Plt Count 128 10^3/uL L 10^3/uL (150-400) MPV 10.3 fL fL (8.7-11.7) Neut % (Auto) 66.4 % % (39.3-74.2) Lymph % (Auto) 23.4 % % (15.0-45.0) [place] % (Auto) 6.3 % % (4.5-13.0) Eos % (Auto) 3.2 % % (0.6-7.6) Baso % (Auto) 0.5 % % (0.3-1.7) Nucleat RBC Rel Count 0.0 % % (0.0-0.2) Absolute Neuts (auto) 2.72 10^3/uL 10^3/uL (1.70-6.50) Absolute Lymphs (auto) 0.96 10^3/uL L 10^3/uL (1.00-3.00) Absolute Monos (auto) 0.26 10^3/uL L 10^3/uL (0.30-0.80) Absolute Eos (auto) 0.13 10^3/uL 10^3/uL (0.03-0.40) Absolute Basos (auto) 0.02 10^3/uL 10^3/uL (0.02-0.10) Absolute Nucleated RBC 0.00 10^3/uL 10^3/uL (0-0.01) Immature Gran % 0.2 % % (0.0-1.1) Immature Gran # 0.01 10^3/uL 10^3/uL (0.00-0.10) PT 20.1 SEC H SEC (12.0-15.0) INR 1.70 H (0.83-1.16) Sodium 146 mEq/L H mEq/L (135-145) Potassium 4.8 mEq/L mEq/L (3.3-5.0) Chloride 104 mEq/L mEq/L (97-110) Carbon Dioxide 31 mEq/l mEq/l (22-31) Anion Gap 11 mEq/L mEq/L (8-16) BUN 32 mg/dL H mg/dL (7-23) Creatinine 1.4 mg/dL H mg/dL (0.6-1.0) Estimated GFR 35 Glucose 103 mg/dL H mg/dL (70-100) Calcium 9.2 mg/dL mg/dL (8.5-10.4) Total Bilirubin 0.7 mg/dL mg/dL (0.1-1.4) Conjugated Bilirubin 0.4 mg/dL mg/dL (0.0-0.5) Unconjugated Bilirubin 0.3 mg/dL mg/dL (0.0-1.1) AST 27 IU/L IU/L (14-46) ALT 21 IU/L IU/L (9-52) Alkaline Phosphatase 43 IU/L IU/L (38-126) Troponin I Total Protein 6.7 g/dL g/dL (6.3-8.2) Albumin 3.8 g/dL g/dL (3.5-5.0) Lipase 75 IU/L IU/L (23-300) Stool Occult Bld Scrn Patient ABO/Rh Antibody Screen Medications Given: Discontinued Medications Sodium Chloride (Ns) 1,000 mls @ 0 mls/hr IV ONCE ONE; Wide Open PRN Reason: Protocol Stop: 10/15/17 10:38 Last Admin: 10/15/17 11:44 Dose: 1,000 mls Pantoprazole Sodium (Protonix) 40 mg IVP ONCE ONE Stop: 10/15/17 12:24 Last Admin: 10/15/17 12:38 Dose: 40 mg General Time Seen by Provider: 10/15/17 10:34 Initial Vital Signs: Initial Vital Signs Temperature (C) 36.7 C 10/15/17 10:10 Heart Rate 62 10/15/17 10:10 Respiratory Rate 20 10/15/17 10:10 Blood Pressure 119/55 L 10/15/17 10:10 O2 Sat (%) 90 L 10/15/17 10:10 O2 Delivery Mode Nasal Cannula O2 (L/minute) 2 Allergies/Adverse Reactions: No Known Allergies Allergy (Verified 07/20/17 11:52) Home Medications: Medication Instructions Recorded Cholecalciferol Vit D3 [Vitamin D3 5,000 units PO MOWEFR 06/17/15 (*)] Digoxin [Digox] 0.125 mg PO SUMOWEFR 06/17/15 Potassium Chloride [POTASSIUM 10 meq PO DAILY 06/17/15 CHLORIDE] Furosemide [Lasix] 30 mg PO DAILY 07/20/17 Herbals/Supplements -Info Only 1 ea PO DAILY 07/20/17 Macitentan 10mg [Opsumit] 1 tab PO HS 07/20/17 Multivitamins [Multivitamin (*)] 1 each PO DAILY 07/20/17 Riociguat 2.5mg [Adempas] 1 tab PO 08,14,20 07/20/17 Furosemide [Lasix 20 MG (*)] 20 mg PO DAILY@12 10/15/17 Departure - Departure Disposition: [facility] Inpatient Acute Clinical Impression: Bloody stool, Bloody diarrhea Condition: Good Report Scribed for: Yumiko Ricci Report Scribed by: Tracy Tate Date of Report: 10/15/17 Time of Report: 11:33 Physician Review and Approval Statement: Portions of this note were transcribed by a medical esthetician. I personally performed a history, physical exam, medical decision making, and confirmed accuracy of information the transcribed note.
[2017-10-15 11:43] LABS: INR 1.7 (0.83-1.16); PROTIME(PATIENT) 20.1 SEC (12.0-15.0)
[2017-10-15 11:44] LABS: PLATELET COUNT 128 10^3/uL (150-400)
--- NOTE | 2017-10-15 11:45 | CPEKG ---
Heart Rate: 60 RR Interval: 1000 QRSD Interval: 146 QT Interval: 500 QTC Interval: 500 QRS [place]: 236 T Wave [place]: 95 EKG Severity - ABNORMAL ECG - EKG Impression: AFIB/FLUTTER AND VENTRICULAR-PACED RHYTHM Electronically Signed By: Yumiko Ricci 15-Oct-2017 15:17:53
[2017-10-15] MEDS ORDERED: PANTOPRAZOLE SODIUM 40 MG VIAL IVP ONE (12:23)
[2017-10-15] MEDS ORDERED: ONDANSETRON 4 MG/2 ML VIAL ONE (12:41)
[2017-10-15] MEDS ORDERED: ONDANSETRON DISINTEGRATING 4 MG TAB PO PRN (15:58)
[2017-10-15] MEDS ORDERED: ONDANSETRON 4 MG/2 ML VIAL IVP PRN (15:58)
[2017-10-15] MEDS ORDERED: NS 1,000 ML IV SCH (16:00)
--- NOTE | 2017-10-15 17:42 | GHP ---
[f rep st] HISTORY AND PHYSICAL DATE OF ADMISSION: 10/15/2017 CHIEF COMPLAINT: Bloody diarrhea. HISTORY OF PRESENT ILLNESS: This is an 87-year-old female with a history of pulmonary hypertension; systemic hypertension; and atrial fibrillation, on Xarelto; who presents with bloody diarrhea that be domitila the day prior to presentation. Patient reports having approximately 4 episodes from initiation t o her presentation to the ED. The patient denies any concurrent abdominal discomfort. Does describe some dizziness in the home and some nausea the morning of presentation with no vomiting. The patien t denies any preceding episodes of bloody diarrhea in the past and again no abdominal discomfort asso ciated with it. She has no known history of gastritis or ulcer disease. Reports that her last colon oscopy was many years ago with only diverticula. No other abnormalities. The patient denies any nahomy rtness of breath beyond her baseline. Denies chest pain. Denies headaches. Denies myalgias, arthra lgias, or paresthesias. PAST MEDICAL HISTORY: 1. Severe pulmonary hypertension. 2. Systemic hypertension. 3. Atrial fibrillation, on anticoagulation. SOCIAL HISTORY: Negative for tobacco, alcohol or illicit drugs. FAMILY HISTORY: Negative for known GI bleeding. ADVANCE DIRECTIVES: The patient is [id number]. Her daughter would be her medical decision-m lynda. REVIEW OF SYSTEMS: A 10-point review of systems is negative with the exception of that reported in t he HPI. PHYSICAL EXAMINATION: VITAL SIGNS: Blood pressure 112/52, heart rate 68, respiratory rate 16, 98% o n 8 L, 36.9. GENERAL: This is a comorbid-appearing elderly female in no acute distress. HEENT: No table for dry mucous membranes. Eye exam is negative for any icterus. CARDIAC: Patient is regular rate and rhythm. PULMONARY: Diminished breath sounds at the bases. No rales are appreciated or whe ezing. GASTROINTESTINAL: Positive bowel sounds. Abdomen is soft and nontender. MUSCULOSKELETAL: Negative for any lower extremity edema. SKIN: Negative for any rashes. NEUROLOGIC: She is alert a nd oriented x3. PSYCHIATRIC: Pleasant and cooperative on interview and examination. DATA: White count 4.1, hematocrit 31.7, platelet count of 128. INR 1.7. Creatinine 1.4, appears ne ar her baseline. EKG, which I personally reviewed and interpreted, shows a paced rhythm with underly ing atrial fibrillation. ASSESSMENT AND PLAN: This is an 87-year-old female presenting with acute gastrointestinal bleed. 1. Acute gastrointestinal bleed. Based on her anticoagulant use in the outpatient setting and lack of symptoms, this could be upper or lower in origin. Dr. Shanks from Gastroenterology has been co nsulted. She will perform the EGD and colonoscopy tomorrow. We will keep the patient on clear liqui ds this afternoon and n.p.o. after midnight with GoLYTELY prep for procedure in the morning. The pat torsten took her last dose of Xarelto last night. We will hold for her procedure in the morning. 2. Pulmonary hypertension. The patient's med reconciliation has not been completed. We will hold a ny vasoactive medications in the setting of acute GI bleed. Continue supplemental oxygen. 3. Atrial fibrillation. Can continue digoxin if she takes it regularly. Otherwise, we will hold an y other rate control medications in the setting of acute GI bleed. 4. Prophylaxis: Holding Xarelto. Patient can have SCDs. 5. Diet: Clear liquids and n.p.o. with GoLYTELY prep. 6. Disposition: I expect greater than 2 midnights as the patient is nearly 88 years old, presenting with acute gastrointestinal bleed. She will require diagnostic workup and medical stabilization bef ore being safe for disposition home. I discussed the case with the emergency room physician. Sandeep espinoza will be triaged to the medical-surgical floor for care. /[id number]/MODL
[2017-10-15] MEDS ORDERED: PEG 3350/NA SULF,BICARB,CL/KCL (GAVILYTE-G) 4000 ML BTL PO ONE (19:07)
[2017-10-15] MEDS: MACITENTAN 10 MG PO SCH (20:09)
[2017-10-15] MEDS: RIOCIGUAT 2.5 MG PO SCH (20:09)
[2017-10-16 05:04] LABS: PLATELET COUNT 103 10^3/uL (150-400)
[2017-10-16] MEDS: ACETAMINOPHEN 325 MG TAB PO PRN ×2 (05:26→23:34)
[2017-10-16] MEDS: RIOCIGUAT 2.5 MG PO SCH ×3 (08:38→21:05)
[2017-10-16] MEDS ORDERED: FUROSEMIDE 20 MG TAB PO SCH ×2 (09:00→12:00)
[2017-10-16] MEDS ORDERED: Herbals/Supplements -Info Only PO SCH (09:00)
[2017-10-16] MEDS ORDERED: NS 500 ML IV ONE ×2 (09:04→17:51)
--- NOTE | 2017-10-16 09:32 | PDANEPAE ---
ANE History of Present Illness EGD colonoscope GI bleed ANE Past Medical History - Cardiovascular History Hx Hypertension: Yes Hx Arrhythmias: Yes Hx Chest Pain: No Hx Coronary Artery / Peripheral Vascular Disease: No - Pulmonary History Hx Asthma/Reactive Airway Disease: No Hx Oxygen in Use at Home: Yes O2 in Use at Home (L/minute): 8 Hx Sleep Apnea: No Sleep Apnea Screening Result - Last Documented: Negative - Endocrine History Hx Diabetes: No Hypothyroid: No Hyperthyroid: No Obesity: no - Chronic Pain History Chronic Pain: Yes ANE Review of Systems Review of Systems: - Exercise capacity Exercise capacity: limited by disability - Systems Cardiac: Reports: other (HTN and Pulm HTN HX CHF) - Pacemaker 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 Patient History - Allergies Allergies/Adverse Reactions: No Known Allergies Allergy (Verified 07/20/17 11:52) - Home Medications Home Medications: Cholecalciferol Vit D3 [Vitamin D3 (*)] 5,000 units PO MOWEFR 06/17/15 [Last Taken 06/16/15] Digoxin [Digox] 0.125 mg PO SUMOWEFR 06/17/15 [Last Taken 06/17/15] Potassium Chloride [POTASSIUM CHLORIDE] 10 meq PO DAILY 06/17/15 [Last Taken ] Furosemide [Lasix] 30 mg PO DAILY 07/20/17 [Last Taken Unknown] Herbals/Supplements -Info Only 1 ea PO DAILY 07/20/17 [Last Taken Unknown] Macitentan 10mg [Opsumit] 1 tab PO HS 07/20/17 [Last Taken Unknown] Multivitamins [Multivitamin (*)] 1 each PO DAILY 07/20/17 [Last Taken Unknown] Riociguat 2.5mg [Adempas] 1 tab PO TID 07/20/17 [Last Taken Unknown] Furosemide [Lasix 20 MG (*)] 20 mg PO DAILY@12 10/15/17 [Last Taken Unknown] - NPO status NPO Status: no food or drink >8 hours NPO Since - Liquids (Date): 10/16/17 NPO Since - Liquids (Time): 00:00 NPO Since - Solids (Date): 10/16/17 NPO Since - Solids (Time): 00:00 - Smoking Hx Smoking Status: Never smoked ANE Labs/Vital Signs - Labs Result Diagrams: 10/16/17 04:37 10/15/17 11:30 - Vital Signs Blood Pressure: 119/67 Heart Rate: 77 Respiratory Rate: 16 O2 Sat (%): 87 Height: 165.1 cm Weight: 55.338 kg ANE Physical Exam - Airway Neck exam: decreased ROM Mallampati Score: Class 1 Mouth exam: normal dental/mouth exam - Pulmonary Pulmonary: reduced air movement - Cardiovascular Cardiovascular: regular rate and rhythym - ASA Status ASA Status: IV ANE Anesthesia Plan Anesthesia Plan: GA with mask
[2017-10-16] MEDS ORDERED: PROPOFOL 200 MG/20 ML VIAL ONE ×2 (09:40)
[2017-10-16] MEDS ORDERED: EPINEPHrine 1 MG/10 ML SYR IVP ONE (09:48)
--- NOTE | 2017-10-16 10:42 | GIREPORT ---
[facility] Surgical Services - Endoscopy Department Patient Name: Ida Terry Procedure Date: 10/16/2017 9:52 AM Patient Type: Inpatient Attending MD/ ER Physician: Alison Shanks MD Procedure: Colonoscopy Indications: Hematochezia Providers: Alison Shanks MD Medicines: Monitored Anesthesia Care Complications: No immediate complications. Description of Procedure: After obtaining informed consent, the scope was passed under direct vis ion. Throughout the procedure, the patient's blood pressure, pulse, and oxyg en saturations were monitored continuously. The Colonoscope was introduced through the anus and advanced to the terminal ileum. The colonoscopy wa s performed without difficulty. The patient tolerated the procedure well. The quality of the bowel preparation was fair. The terminal ileum, ileoceca l valve, appendiceal orifice, and rectum were photographed. Findings: Hemorrhoids were found on perianal exam. Multiple diverticula were found in the sigmoid colon, descending colon, hepatic flexure and ascending colon. Two semi-pedunculated polyps were found in the ascending colon and cecu m. The polyps were small in size. Estimated Blood Loss: Estimated blood loss: none. Post Op Diagnosis: - Preparation of the colon was fair. - There was red blood through out colon but no site of active bleeding seen. No blood from ilium. - Hemorrhoids found on perianal exam. - Diverticulosis in the sigmoid colon, in the descending colon, at the hepatic flexure and in the ascending colon. - Two small polyps in the ascending colon and in the cecum. Theses poly ps were not bleeding and nit removed today due to risk of post polypectomy bleeding and low likelihood these polyps will impact patient's health g iven age and comorbid disease. - No specimens collected. - Suspect diverticular bleed. Recommendation: - Clear liquid diet. - [facility]. - Monitor H+H. - Suggest tagged cell scan if recurrent bleeding. - Thank you for allowing me to participate in the care of your patient. Attending Participation: I personally performed the entire procedure. Aliosn Shanks MD Alison Shanks MD 10/16/2017 10:41:18 AM This report has been signed electronicallyAlison Shanks MD Number of Addenda: 0 Note Initiated On: 10/16/2017 9:52 AM Total Procedure Duration Time 0 hours 18 minutes 33 seconds [email or web address]
--- NOTE | 2017-10-16 10:43 | GIREPORT ---
[facility] Surgical Services - Endoscopy Department Patient Name: Ida Terry Procedure Date: 10/16/2017 9:31 AM Patient Type: Inpatient Attending MD/ ER Physician: Alison Shanks MD Procedure: Upper GI endoscopy Indications: Hematochezia, Melena Providers: Alison Shanks MD Medicines: Monitored Anesthesia Care Complications: No immediate complications. Description of Procedure: After obtaining informed consent, the endoscope was passed under direct vision. Throughout the procedure, the patient's blood pressure, pulse, and oxygen saturations were monitored continuously. The Endoscope was intro duced through the mouth, and advanced to the second part of duodenum. [facility] GI endoscopy was accomplished without difficulty. The patient tolerated th e procedure well. Findings: The esophagus was normal. Scattered moderate inflammation characterized by erythema and granulari ty was found in the gastric body and in the gastric antrum. Biopsies were taken with a cold forceps for histology. Estimated blood loss was minimal. The examined duodenum was normal. Estimated Blood Loss: Estimated blood loss was minimal. Post Op Diagnosis: - Normal esophagus. - Gastritis. Biopsied. - Normal examined duodenum. Recommendation: - Await pathology results. - Clear liquid diet. - Use a proton pump inhibitor PO. - Return patient to [facility] for ongoing care. - Thank you for allowing me to participate in the care of your patient. Attending Participation: I personally performed the entire procedure. Alison Shanks MD Alison Shanks MD 10/16/2017 10:43:08 AM This report has been signed electronicallyAlison Shanks MD Number of Addenda: 0 Note Initiated On: 10/16/2017 9:31 AM [email or web address]
--- NOTE | 2017-10-16 10:46 | PDMN ---
Medical Necessity Medical necessity: Pt meets IP criteria per MD; est los >2 mn for eval/tx of acute GI bleed; admit for further workup/monitoring, GI consult, EGD/ Colonoscopy & IVFs; comorbid advanced age, severe pulmonary HTN, systemic HTN & AFIB on AC; per H&P & order 10/15/17
[2017-10-16] MEDS: POTASSIUM CL 10 MEQ TAB PO SCH (11:36)
[2017-10-16] MEDS: MULTIVITAMINS 1 EACH TAB PO SCH (11:36)
--- NOTE | 2017-10-16 11:45 | GCON ---
[f rep st] CONSULTATION DATE OF CONSULTATION: 10/16/2017 CHIEF COMPLAINT: Melena. HISTORY OF PRESENT ILLNESS: I am asked to see this patient in consultation by Dr. Gallego for a fadi f complaint of GI bleed. She is an 87-year-old with multiple medical problems including chronic atri al fibrillation, which is requiring pacemaker, anticoagulation and pulmonary hypertension who noted i nitially black loose stools yesterday, but also with some amount of bright red blood. She has never had history of GI bleeding. No known history of peptic ulcer disease. No diarrhea or constipation p rior to this. She has had no nausea, vomiting, hematemesis. No GERD symptoms. No abdominal pain. She denies NSAID use. With a bowel prep she has had resolution of any blood or black in her stools t his morning. ALLERGIES: No known allergies. MEDICATIONS ON ADMISSION: Lasix, vitamin D, digoxin, supplements, Lasix, Adempas, Opsumit and Xarelt o. PAST MEDICAL HISTORY: Notable for atrial fibrillation, on anticoagulation and pacemaker dependent, s ystemic hypertension, significant pulmonary hypertension requiring oxygen at home. SOCIAL HISTORY: She uses occasional alcohol. FAMILY HISTORY: Negative for colon cancer or colon polyps. REVIEW OF SYSTEMS: I performed a complete review of systems which is negative except for the pertine nt positives and negatives noted above in the HPI. PHYSICAL EXAM: VITAL SIGNS: Afebrile at 37.9, BP 119/67, pulse 77. GENERAL: She is alert and orie nted. EYES: No scleral icterus. HEENT: No oral lesions. CARDIOVASCULAR: Regular rhythm. CHEST: Coarse breath sounds bilaterally. ABDOMEN: Soft, nontender. NEUROLOGIC: Nonfocal. SKIN: No ra shes or lesions. LABORATORY DATA: On admission hematocrit was 31.7, today it is 29.2 with a hemoglobin 9.1. Coags ar e slightly elevated with a ProTime of 20.1 and INR 1.70. BUN and creatinine were elevated at 32 and 1.4. ASSESSMENT: The patient with gastrointestinal bleed, presenting with both melena and possibly bright red blood. Although with elevated BUN I suspect this most likely is an upper gastrointestinal bleed . Clinically it appears to have stopped. However, given her need for chronic anticoagulation, I wou ld recommend upper endoscopy for evaluation to assess for risk of rebleeding. Also given the presenc e of some bright red blood would recommend colonoscopy as it has been 8-10 years since her last colon oscopy to assess for potential bleeding site there as well. I have discussed the risks, benefits and alternatives with the patient and she agrees to proceed with upper and lower endoscopy with potentia l therapeutic treatment if needed. Overall patient would be high risk because of her anticoagulation , atrial fibrillation and her poor pulmonary status. We will do this with the assistance of Anesthes ia. PLAN: Upper and lower endoscopy with anesthesia for assessment of GI bleed, potential therapeutic in tervention. Further recommendations to follow. PPI for now. Thank you for this consult. /[id number]/MODL
--- NOTE | 2017-10-16 12:34 | ASMTCASEMG ---
Living Arrangements What is your living Answers: With Child(aleisha) arrangement? Who do you live with? Type Of Residence What kind of residence do Answers: House you live in? Discharge Plan Comments Coordination Status Comments Notes: Pt is a 87 y/o female admitted for a GI hemorrhage. Therapies have been ordered and awaiting recommendations. Needs are TBD at this time. CM to follow. Plan: TBD Date Signed: 10/16/2017 12:33 PM Electronically Signed By:DEEPAK Seay
--- NOTE | 2017-10-16 15:40 | HOSPPROG ---
Hospitalist Progress Note Assessment/Plan: # Acute GIB - EGD and colonoscopy today - red blood in colon with no clear source and gastritis in stomach - cont PPI BID - cont holding anticoagulation - follow H&H - may need tagged red cell scan if resumes heavy losses # anemia 2/2 acute blood loss- Hgb 9 this am - no transfusion currently - monitor off anticoagulation # pulmonary HTN - will continue home meds without diuretics oxygen saturations 98% on 5L - holding diuretics Afib - holding anticoag EKG (personally reviewed and interpreted) paced in afib # proph - none 2/2 GIB # dispo - > 2MN as we need to monitor off anticoagulants for bleeding I have discussed the case with GI - pt scoped today cont clear liquids today Subjective: denies pain Objective: Vital Signs Temp Pulse Resp BP Pulse Ox 37.0 C 61 14 94/43 L 98 10/16/17 15:13 10/16/17 15:13 10/16/17 15:13 10/16/17 15:13 10/16/17 15:13 Laboratory Results 10/16/17 04:37 10/15/17 10/16/17 10/17/17 05:59 05:59 05:59 Intake Total 1500 70 Balance 1500 70 PT 20.1 SEC (12.0-15.0) H 10/15/17 11:30 INR 1.70 (0.83-1.16) H 10/15/17 11:30 - Physical Exam Constitutional: chronically ill appearing Eyes: anicteric sclera Ears, Nose, Mouth, Throat: dry mucous membranes Cardiovascular: regular rate and rhythym, systolic murmur Respiratory: no respiratory distress Gastrointestinal: normoactive bowel sounds Genitourinary: no bladder fullness Skin: warm Musculoskeletal: No asymmetric calves Neurologic: AAOx3 Psychiatric: interacting appropriately Lymph, Heme, Immunologic: no cervical LAD ICD10 Worksheet Patient Problems: Problems Problem Status Onset Bloody diarrhea Acute Bloody stool Acute Chronic Disease Mgmt/Transitional Care Acute Lumbar compression fracture Acute Pneumonia Acute
[2017-10-16] MEDS ORDERED: NS 1,000 ML IV SCH (18:00)
--- NOTE | 2017-10-16 18:36 | POSTANESTH ---
Post Anesthetic Evaluation Cardiovascular Status: Similar to Pre-Op Cond Respiratory Status: Tx Decrease in SpO2 Level of Consciousness/Mental Status: Can Participate in Eval Pain Control: Adequate, Prn Tx Ordered Nausea/Vomiting Control: Adequate, Prn Tx Ordered Complications Possibly Related to Anesthesia: None Noted (PT 6 to 8 liters O2 preop. No change)
[2017-10-16] MEDS: DIGOXIN 125 MCG TAB PO SCH (18:45)
[2017-10-16] MEDS: CHOLECALCIFEROL VIT D3 1,000 UNITS TAB PO SCH (18:45)
[2017-10-16] MEDS: MACITENTAN 10 MG PO SCH (21:04)
[2017-10-17] MEDS: ACETAMINOPHEN 325 MG TAB PO PRN ×3 (08:53→23:17)
[2017-10-17] MEDS: MULTIVITAMINS 1 EACH TAB PO SCH (08:54)
[2017-10-17] MEDS: RIOCIGUAT 2.5 MG PO SCH ×3 (08:55→20:05)
[2017-10-17] MEDS: POTASSIUM CL 10 MEQ TAB PO SCH (08:55)
--- NOTE | 2017-10-17 10:12 | SOAPPROG ---
SOVISHAL Progress Note Assessment/Plan: Assessment: GIB suspect from diverticular bleed. There was still old and red blood in colon but no site of active bleeding seen. Given stable H+H and VS suspect bleeding has stopped and bloody BM today is from old blood. Plan:OK to advance diet Agree with trial of heparin before restarting Xarelto and monitor today If stable then D/C home tomorrow, if e/o rebleeding then recommend tagged RBC cell scan and angio 10/17/17 10:09 Subjective: cc brbpr Pt with large bm today with blood Objective: Vital Signs Temp Pulse Resp BP Pulse Ox 37.1 C 60 16 146/64 H 92 10/17/17 08:00 10/17/17 08:00 10/17/17 08:00 10/17/17 08:00 10/17/17 08:00 Laboratory Results 10/17/17 03:15 10/16/17 10/17/17 10/18/17 05:59 05:59 05:59 Intake Total 1500 2900 Output Total 100 100 Balance 1500 2800 -100 PT 20.1 SEC (12.0-15.0) H 10/15/17 11:30 INR 1.70 (0.83-1.16) H 10/15/17 11:30 Physical Exam - Physical Exam General Appearance: alert, no apparent distress Respiratory: lungs clear Cardiac/Chest: regular rate, rhythm Abdomen: non-tender, soft ICD10 Worksheet Patient Problems: Problems Problem Status Onset Bloody diarrhea Acute Bloody stool Acute Chronic Disease Mgmt/Transitional Care Acute Lumbar compression fracture Acute Pneumonia Acute
[2017-10-17 10:59] LABS: PLATELET COUNT 114 10^3/uL (150-400)
[2017-10-17 11:06] LABS: INR 1.21 (0.83-1.16); PROTIME(PATIENT) 15.5 SEC (12.0-15.0)
[2017-10-17] MEDS: HEPARIN 10,000 UNIT/10 ML MDV (1,000 UNIT/ML) IVP PRN (11:16)
[2017-10-17] MEDS: HEPARIN/DEXTROSE 500 ML IV SCH (11:17)
--- NOTE | 2017-10-17 15:40 | ASMTCMCOM ---
CM Note CM Note Notes: CM met w/ pt and daughter, Be for dispo planning. Pt typically recieves a total of 6-8hrs daily. Pts daugherMadelyn that she lives w/ works from home. PT is recommending HC. Pt and Be are unable to recall the HC agency that they have used in the past. Linda, one of pts caregivers that will come in tomorrow AM will know which HC agency pt has used in the past. CM will f/u tomorrow. Be reports that pt is current w/ [facility]. Updates sent to [facility]. CM to follow. Plan: HC; PT with [facility] Date Signed: 10/17/2017 03:39 PM Electronically Signed By:DEEPAK Seay
--- NOTE | 2017-10-17 15:44 | HOSPPROG ---
Hospitalist Progress Note Assessment/Plan: # Acute GIB - EGD and colonoscopy today - red blood in colon with no clear source and gastritis in stomach Dr. Shanks suspect likely diverticular bleed- did not biopsy the couple of polyps present to avoid additional bleeding risk has not had additional bright red blood since admission - Hgb 10 this am - cont PPI BID - start heparin gtt without bolus today - follow H&H - if doesn't rebleed in 24 hours can consider xarelto restart # Anemia 2/2 acute blood loss- Hgb 9-> 10 this am - no transfusion currently - monitor off anticoagulation # Hypotension - has been resolving through course of the day- SBP 140's now - restart Lasix in am # Pulmonary HTN - will continue home meds without diuretics oxygen saturations 98% on 5L - holding diuretics # Afib - cautiously restarting anticoagulation EKG (personally reviewed and interpreted) paced in afib # proph - heparin gtt # dispo - > 2MN as we need to monitor off anticoagulants for bleeding I have discussed the case with GI - pt holding Hgb - starting no bolus heparin gtt Subjective: exhausted Objective: Vital Signs Temp Pulse Resp BP Pulse Ox 36.6 C 62 16 140/64 H 90 L 10/17/17 11:01 10/17/17 11:01 10/17/17 11:01 10/17/17 11:01 10/17/17 11:01 Laboratory Results 10/17/17 10:49 10/16/17 10/17/17 10/18/17 05:59 05:59 05:59 Intake Total 1500 2900 Output Total 100 100 Balance 1500 2800 -100 PT 15.5 SEC (12.0-15.0) H 10/17/17 10:49 INR 1.21 (0.83-1.16) H 10/17/17 10:49 - Physical Exam Constitutional: chronically ill appearing Eyes: anicteric sclera Ears, Nose, Mouth, Throat: moist mucous membranes Cardiovascular: regular rate and rhythym Respiratory: no respiratory distress, inspiratory crackles Gastrointestinal: normoactive bowel sounds Genitourinary: no bladder fullness Skin: warm Musculoskeletal: No asymmetric calves Neurologic: AAOx3 Psychiatric: interacting appropriately Lymph, Heme, Immunologic: no cervical LAD ICD10 Worksheet Patient Problems: Problems Problem Status Onset Bloody diarrhea Acute Bloody stool Acute Chronic Disease Mgmt/Transitional Care Acute Lumbar compression fracture Acute Pneumonia Acute
[2017-10-17] MEDS: MACITENTAN 10 MG PO SCH (20:05)
[2017-10-17] MEDS ORDERED: FUROSEMIDE 20 MG/2 ML VIAL IVP ONE (23:09)
[2017-10-18] MEDS: MULTIVITAMINS 1 EACH TAB PO SCH (08:35)
--- NOTE | 2017-10-18 08:38 | HOSPPROG ---
Hospitalist Progress Note Assessment/Plan: # Acute GIB - EGD and colonoscopy yest - red blood in colon with no clear source and gastritis in stomach, +diverticular dz, suspect diverticular bleed Dr. Shanks did not biopsy the couple of polyps present to avoid additional bleeding risk Had small maroon colored stool this morning - Hgb stable 9-10, no hypotension - cont heparin drip while undergoing tagged rbc scan, ordered for recurrent bleeding - low threshold to stop heparin if any drop in h&h, change in VS or recurrent bloody stools - follow H&H closely - if doesn't rebleed in 24 hours and tagged rbc neg, consider xarelto restart # Anemia 2/2 acute blood loss- Hgb 9.3 (stable from 9.1 yest), hgb up and down b /t 9-10 - no transfusion currently - monitor back on anticoagulation with low threshold to hold as above # Hypotension - SBP 130's-160's over past 24 hrs and requiring diuresis - cont lasix with close monitoring # Acute HF - CXR last night personally reviewed / interp +pulmonary edema, bnp ordered this am - repeat IV Lasix today, 20 mg IV BID - defer echo in this hospice pt as unlikely to manager change - monitor I&O, daily wts # AHRF on CHRF - Baseline 8 LPM. Now on 10 LPM, 2/2 acute HF, management as above # YOSELIN - baseline Cr ~1.2, up to 1.4 on admission - recheck bmp after lasix # Pulmonary HTN - continue home meds # Afib - cautiously resuming anticoagulation, as above EKG (personally reviewed and interpreted) paced in afib # Deyvi present - will leave in today for I&O's, d/c tomorrow # proph - heparin gtt # dispo - > 2MN as we need to monitor for bleeding back on anticoagulation and further manage acute HF. D Subjective: Pt is SOB, orthopneic with PND. Had small maroon colored stool this am. No abdominal pain. No CP. She received IV lasix overnight with pulmonary edema on CXR and increased O2 requirement and SOB. Also, carl placed for I&O's in setting of weakness. Objective: Vital Signs Temp Pulse Resp BP Pulse Ox 36.9 C 64 24 H 132/53 H 96 10/18/17 08:00 10/18/17 08:00 10/18/17 08:00 10/18/17 08:00 10/18/17 08:00 Laboratory Results 10/18/17 04:44 10/17/17 10/18/17 10/19/17 05:59 05:59 05:59 Intake Total 2900 221 Output Total 100 850 Balance 2800 -629 PT 15.5 SEC (12.0-15.0) H 10/17/17 10:49 INR 1.21 (0.83-1.16) H 10/17/17 10:49 - Physical Exam Constitutional: no apparent distress Eyes: PERRL Ears, Nose, Mouth, Throat: moist mucous membranes Cardiovascular: regular rate and rhythym, systolic murmur Respiratory: reduced air movement, inspiratory crackles, respiratory distress Gastrointestinal: normoactive bowel sounds, soft, non-tender abdomen, other (+ abdominal bloating / mild distention from fluid) Skin: warm Musculoskeletal: generalized weakness Neurologic: AAOx3 Psychiatric: interacting appropriately ICD10 Worksheet Patient Problems: Problems Problem Status Onset Bloody diarrhea Acute Bloody stool Acute Chronic Disease Mgmt/Transitional Care Acute Lumbar compression fracture Acute Pneumonia Acute
[2017-10-18] MEDS: POTASSIUM CL 10 MEQ TAB PO SCH (09:05)
[2017-10-18] MEDS: RIOCIGUAT 2.5 MG PO SCH ×3 (09:06→19:36)
[2017-10-18] MEDS: HEPARIN/DEXTROSE 500 ML IV SCH (09:06)
[2017-10-18] MEDS: FUROSEMIDE 20 MG/2 ML VIAL IVP SCH ×2 (09:23→14:47)
--- NOTE | 2017-10-18 09:24 | SOAPPROG ---
SOAP Progress Note Assessment/Plan: Assessment: GIB suspect from diverticular bleed. Concern that pt may be rebleeding bt otherwise stable. Recommend Tagged cell scan to confirm if bleeding and identify location. Family unsure if they would want more aggressive care such as angio but discussed option to stop anticoagulation and transfuse blood if still bleeding. Plan: Check tagged call scan today repeat H+H If tagged cell scan is negative then OK to d/c home. 10/18/17 09:21 Subjective: GIB Pt with another bm today with BRB Objective: Vital Signs Temp Pulse Resp BP Pulse Ox 36.9 C 64 24 H 132/53 H 96 10/18/17 08:00 10/18/17 08:00 10/18/17 08:00 10/18/17 08:00 10/18/17 08:00 Laboratory Results 10/18/17 04:44 10/17/17 10/18/17 10/19/17 05:59 05:59 05:59 Intake Total 2900 221 Output Total 100 850 Balance 2800 -629 PT 15.5 SEC (12.0-15.0) H 10/17/17 10:49 INR 1.21 (0.83-1.16) H 10/17/17 10:49 Physical Exam - Physical Exam General Appearance: alert Respiratory: lungs clear Cardiac/Chest: regular rate, rhythm Abdomen: non-tender ICD10 Worksheet Patient Problems: Problems Problem Status Onset Bloody diarrhea Acute Bloody stool Acute Chronic Disease [facility]/Transitional Care Acute Lumbar compression fracture Acute Pneumonia Acute
[2017-10-18] MEDS: ACETAMINOPHEN 325 MG TAB PO PRN ×2 (14:46→23:34)
--- NOTE | 2017-10-18 15:11 | ASMTCMCOM ---
CM Note CM Note Notes: CM met w/ pt, Be and pts caregiver, Linda. Linda is unable to remember which HC agency pt used in the past. CM provided Be w/ list of HC agencies. Be is Madelyn to see if she could remember which home care agency pt used in the past but Madelyn is currently on a cruise. Cecy from [facility] will follow up w/ Be directly to resume services. CM to follow. Plan: private duty HC, skilled HC and [facility] Date Signed: 10/18/2017 03:10 PM Electronically Signed By:DEEPAK Seay
[2017-10-18] MEDS: CHOLECALCIFEROL VIT D3 1,000 UNITS TAB PO SCH (18:23)
[2017-10-18] MEDS: DIGOXIN 125 MCG TAB PO SCH (18:24)
[2017-10-18] MEDS: MACITENTAN 10 MG PO SCH (19:37)
[2017-10-19 07:56] VITALS: BP 134/55
[2017-10-19] MEDS: HEPARIN 10,000 UNIT/10 ML MDV (1,000 UNIT/ML) IVP PRN (08:38)
[2017-10-19] MEDS: FUROSEMIDE 20 MG/2 ML VIAL IVP SCH (08:39)
[2017-10-19] MEDS: MULTIVITAMINS 1 EACH TAB PO SCH (10:14)
[2017-10-19] MEDS: RIOCIGUAT 2.5 MG PO SCH (10:14)
[2017-10-19] MEDS: POTASSIUM CL 10 MEQ TAB PO SCH (10:15)
--- NOTE | 2017-10-19 10:43 | ASMTLACE ---
LACE Length of stay for Answers: 4-6 days current admission Acuity / Level of Answers: Yes Care: Did the patient have an inpatient admission? Comorbidities - select Answers: Palliative care / End of all that apply life trajectory Other Notes: HTN; Pacemaker # of Emergency department Answers: 1-2 visits in the last 6 months Score: 11 Date Signed: 10/19/2017 10:42 AM Electronically Signed By:EDDIE Collins
--- NOTE | 2017-10-19 10:47 | ASDISCHSUM ---
Discharge Information Plan Status:Home with Home Health Medically Cleared to Leave:10/19/2017 Discharge Date:10/19/2017 D/C Disposition:Home Health Service ADT D/C Disposition:Home, Routine, Self-Care Projected Discharge Date:10/19/2017 11:00 AM Transportation at D/C:Family Discharge Delay Reason: Follow-Up Date:10/19/2017 11:00 AM Discharge Slot: Final Diagnosis: Placement Information Referral Type:Palliative Care Referral ID:[id number] Provider Name:[facility] Address 1:[address] Phone Number: Address 2: Fax Number: City:[place] Selection Factors: State:[place] Patient Contact Information Contact Name:ALAINA Relationship:Daughter Address:[address] Work Phone: City:[facility] Phone: [facility]/Zip Code:[place] [address] Email: Financial Information Financial Class:Medicare Primary Plan Desc:MEDICARE INPATIENT Primary Plan Number:[id number] Secondary Plan Desc:MOSES/MDR SUPPLEMENT Secondary Plan Number:[id number] Assessment Information LACE LACE Length of stay for Answers: 4-6 days current admission Acuity / Level of Answers: Yes Care: Did the patient have an inpatient admission? Comorbidities - select Answers: Palliative care / End of all that apply life trajectory Other Notes: HTN; Pacemaker # of Emergency department Answers: 1-2 visits in the last 6 months Score: 11 Date Signed: 10/19/2017 10:42 AM Electronically Signed By:EDDIE Collins [facility] Initial CM Assessment Living Arrangements What is your living Answers: With Child(aleisha) arrangement? Who do you live with? Type Of Residence What kind of residence do Answers: House you live in? Discharge Plan Comments Coordination Status Comments Notes: Pt is a 87 y/o female admitted for a GI hemorrhage. Therapies have been ordered and awaiting recommendations. Needs are TBD at this time. CM to follow. Plan: TBD Date Signed: 10/16/2017 12:33 PM Electronically Signed By:DEEPAK Seay [facility] CM Progress Note CM Note CM Note Notes: CM met w/ pt and daughter, Be for dispo planning. Pt typically recieves a total of 6-8hrs daily. Pts Madelyn green that she lives w/ works from home. PT is recommending HC. Pt and Be are unable to recall the HC agency that they have used in the past. Linda, one of pts caregivers that will come in tomorrow AM will know which HC agency pt has used in the past. CM will f/u tomorrow. Be reports that pt is current w/ [facility]. Updates sent to [facility]. CM to follow. Plan: HC; PT with [facility] Date Signed: 10/17/2017 03:39 PM Electronically Signed By:DEEPAK Seay [facility] CM Progress Note CM Note CM Note Notes: CM met w/ pt, Be and pts caregiver, Linda. Linda is unable to remember which HC agency pt used in the past. CM provided Be w/ list of HC agencies. Be is Madelyn to see if she could remember which home care agency pt used in the past but Madelyn is currently on a cruise. [facility] will follow up may directly to resume services. CM to follow. Plan: private duty HC, skilled HC and [facility] Date Signed: 10/18/2017 03:10 PM Electronically Signed By:DEEPAK Seay Case Management Discharge Plan Note Case Management Discharge Discharge Order Complete? Answers: Yes Patient to Obtain Answers: via Family Medications Transportation Arranged Answers: Family/Friends Faxed Final Orders Answers: Yes Notes: [facility] Notified Answers: Yes Discharge Comments Notes: Pt is discharging home today with [facility] and [facility]. D/C documents sent via [employer]. IM completed yesterday. Date Signed: 10/19/2017 10:02 AM Electronically Signed By:EDDIE Collins Intervention Information Intervention Type:*IM-Signed Date of Service:10/18/2017 11:12 AM Patient Type:Inpatient Staff Member:Analilia Moore Hours: Discipline: Severity: Comment:
--- NOTE | 2017-10-19 21:03 | GDS ---
[f rep st] DISCHARGE SUMMARY DISCHARGE DIAGNOSES: 1. Lower gastrointestinal bleed, suspected to be diverticular in origin. 2. Acute blood loss anemia, not requiring transfusion. 3. Hypotension, resolved. 4. Acute heart failure, status post intravenous Lasix. 5. Acute on chronic hypoxemic respiratory failure on her baseline oxygen requirement of 8 L/minute. 6. Acute kidney injury. Creatinine is back to baseline of 1.2-1.4. 7. Pulmonary hypertension. 8. Atrial fibrillation, previously on anticoagulation, which is held at this time. CONSULTANTS: Dr. Alison Shanks, gastroenterology. HISTORY OF DETAILS: Please see history and physical dated October 15, 2017. In brief, the patient is an 87-year-old female with a history of pulmonary hypertension, atrial fibrillation, and chronic antico agulation who presented to the emergency department with bloody diarrhea. [facility]. HOSPITAL COURSE: The patient was admitted to the med/surg unit. Her hemoglobins remained stable, fl uctuating between 9 and 10. She did not require a blood transfusion. She underwent a tagged red blo od cell scan in the setting of ongoing bloody stools, which was negative for a source of bleeding. G I consult was obtained, and she underwent upper endoscopy which was normal, as well as colonoscopy wh ich revealed evidence of diverticulosis. It is thought she likely had a diverticular bleed. She was resumed on heparin the following day, and although she did not significantly drop her hemoglobin and did not require transfusion, she did have ongoing bloody stools. After further discussion with her daughter, it turns out she is actually on hospice. We discussed the high risk of recurrent bleeding if she goes home on hospice back on anticoagulation. She is status post ablation and has been maintai junior in sinus rhythm. I discussed with her daughter that her risk of bleeding seems to outweigh her r isk of stroke at this time and therefore we will hold her anticoagulation for the next 2 weeks and re address the risks, benefits at that time. The patient's goals of care are to be back home with sympt omatic management. DISPOSITION: Patient was discharged home in stable condition to return to hospice care. DISCHARGE MEDICATIONS: Please see Lore for completed outpatient medication list. There are no n ew medications on discharge. Her Xarelto was discontinued. I recommend she continue to hold this fo r 2 weeks and can revisit the risk benefit ratio at that time with her primary care physician as well as her mechanics supervisor, Dr. Tone Dixon. FOLLOWUP: 1. Dr. Saima Gamino, primary care. 2. Dr. Tone Dixon, cardiology, as needed indication. /[id number]/MODL
== END 2017-10-19 12:30 | disposition home or self-care (01) | DRG 377 ==
LOC: F3E 13:14
PROVIDERS: ADMIT Hospitalist; ATTEND Hospitalist
PROC: 0DJD8ZZ Inspection of Lower Intestinal Tract, Via Natural or Artificial Opening Endoscopic (ICD-10-PCS; principal; 2017-10-16 09:30)
PROC: 0DJ08ZZ Inspection of Upper Intestinal Tract, Via Natural or Artificial Opening Endoscopic (ICD-10-PCS; principal; 2017-10-16 09:30)
PROC: 0DB68ZX Excision of Stomach, Via Natural or Artificial Opening Endoscopic, Diagnostic (ICD-10-PCS; principal; 2017-10-16 09:30)
DX: K57.33 Diverticulitis of large intestine without perforation or abscess with bleeding (principal); D62 Acute posthemorrhagic anemia; I50.9 Heart failure, unspecified; J96.21 Acute and chronic respiratory failure with hypoxia; N17.9 Acute kidney failure, unspecified; I27.20 Pulmonary hypertension, unspecified; I11.0 Hypertensive heart disease with heart failure; I48.91 Unspecified atrial fibrillation; Z79.01 Long term (current) use of anticoagulants; Z95.0 Presence of cardiac pacemaker
CPT/HCPCS: 85520-90; 97161-GP; A9560; G8978-GP-CJ; G8979-GP-CI; J1642; J1644; J1940; J2405; J2704

== ENCOUNTER 2017-10-30 12:43 | Observation (INO) | payer OTHER, MEDICARE ==
[2017-10-30] MEDS ORDERED: FAMOTIDINE 20 MG/NACL 50 ML IV ONE (12:50)
--- NOTE | 2017-10-30 12:53 | EDPHY ---
H & P Time Seen by Provider: 10/30/17 12:44 HPI/ROS: CHIEF COMPLAINT: Fatigue, anemia HISTORY OF PRESENT ILLNESS: Patient is an 87-year-old female who is on palliative care for history of CHF and pulmonary hypertension who was recently hospitalized 2 weeks ago for a GI bleed. She has a history of atrial fibrillation and was on Xarelto. That has been held for the last few weeks. While in the hospital she had a colonoscopy, upper endoscopy and tagged red blood cell scan but failed to identify the source of her black tarry stool. Her hematocrit dropped to 28. Saturday it was recheck by her primary and came back at 19. She has been complaining of fatigue and weakness. No lightheadedness. No chest pain. Also she has had an increased oxygen requirement from baseline of 6 up to 8 L. No fevers, no cough. REVIEW OF SYSTEMS: Constitutional: See HPI denies: chills, fever, recent illness, recent injury EENTM: denies: blurred vision, double vision, nose congestion Respiratory: See HPI denies: cough, shortness of breath Cardiac: denies: chest pain, irregular heart rate, lightheadedness, palpitations Gastrointestinal/Abdominal: denies: abdominal pain, diarrhea, nausea, vomiting, blood streaked stools Genitourinary: denies: dysuria, frequency, hematuria, pain Musculoskeletal: denies: joint pain, muscle pain Skin: denies: lesions, rash, jaundice, bruising Neurological: denies: headache, numbness, paresthesia, tingling, dizziness, weakness Hematologic/Lymphatic: denies: blood clots, easy bleeding, easy bruising Immunologic/allergic: denies: HIV/AIDS, transplant EXAM: GENERAL: Weak and in no acute distress. HEAD: Atraumatic, normocephalic. EYES: Pupils equal round and reactive to light, extraocular movements intact, sclera pale, conjunctiva are normal. ENT: TMs normal, nares patent, oropharynx clear without exudates. Moist mucous membranes. NECK: Normal range of motion, supple without lymphadenopathy or JVD. LUNGS: Breath sounds clear to auscultation bilaterally and equal. No wheezes rales or rhonchi. HEART: Regular rate and rhythm without murmurs, rubs or gallops. ABDOMEN: Soft, nontender, normoactive bowel sounds. No guarding, no rebound. No masses appreciated. BACK: No CVA tenderness, no spinal tenderness, step-offs or deformities EXTREMITIES: Normal range of motion, no pitting or edema. No clubbing or cyanosis. NEUROLOGICAL: Cranial nerves II through XII grossly intact. Normal speech, normal gait. 5/5 strength, normal movement in all extremities, normal sensation PSYCH: Normal mood, normal affect. SKIN: Pale Warm, dry, normal turgor, no visible rashes or lesions. Source: Patient Exam Limitations: No limitations - Personal History Tetanus Vaccine Date: < 10 YEARS - Medical/Surgical History Hx Asthma: No Hx Chronic Respiratory Disease: Yes Hx Diabetes: No Hx Cardiac Disease: Yes Hx Renal Disease: No Hx Cirrhosis: No Hx Alcoholism: No Hx HIV/AIDS: No Hx Splenectomy or Spleen Trauma: No Other PMH: PSH: joslyn; kidney stent; pulmonary HTN. 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 - Social History Smoking Status: Never smoked Alcohol Use: None Constitutional: Initial Vital Signs Temperature (C) 37.3 C 10/30/17 12:43 Heart Rate 79 10/30/17 12:43 Respiratory Rate 16 10/30/17 12:43 Blood Pressure 113/53 L 10/30/17 12:43 O2 Sat (%) 95 10/30/17 12:43 O2 Delivery Mode Nasal Cannula O2 (L/minute) 6 Allergies/Adverse Reactions: No Known Allergies Allergy (Verified 07/20/17 11:52) Home Medications: Medication Instructions Recorded Acetaminophen [Tylenol 325mg (*)] 325 mg PO DAILY PRN 10/30/17 Adempas 2.5mg 2.5 mg PO TID 10/30/17 Calcium Carbonate [Oyster Shell 500 mg PO DAILY 10/30/17 Calcium 500 mg (*)] Carboxymethylcellulose 1% [Refresh 1 drop EACHEYE DAILY PRN 10/30/17 Celluvisc (*)] Digoxin [Lanoxin 125 mcg (RX)] 125 mcg PO SUMOWEFR 10/30/17 Ferrous Sulfate [Ferrous Sulf 325 325 mg PO DAILY 10/30/17 MG (*)] Furosemide [Lasix 20 MG (*)] 20 mg PO DAILY@12 10/30/17 Furosemide [Lasix 20 MG (*)] 30 mg PO DAILY 10/30/17 Herbals/Supplements -Info Only 1 ea PO DAILY 10/30/17 Multivitamins [Multivitamin (*)] 1 each PO DAILY 10/30/17 Opsumis 10mg 10 mg PO HS 10/30/17 Potassium Cl [Klor-Con 10 meq (RX)] 10 meq PO DAILY 10/30/17 Medical Decision Making - Diagnostics EKG Interpretation: An EKG obtained and was read and documented in trace view. Please see trace view for full reading and report. The ventricular paced rhythm, no acute ischemic changes, similar to previous ED Course/Re-evaluation: 1:50 p.m. Discussed the case with Angelia who will admit to the hospitalist service. The patient has had trouble with CHF with fluid replacement before. She will need to be closely monitored. Differential Diagnosis: Partial list of the Differential diagnosis considered include but were not limited to; anemia, weakness, and although unlikely based on the history and physical exam, I also considered infection, CHF. Critical Care Time: Critical care time spent by me, Dr. Hudson exclusive with this patient was 45 minutes, exclusive of the PA time exclusive of procedures. The organ system that was at risk was cardiovascular and I gave diagnostics, consultation and admission to prevent worsening of the patient's condition - Data Points Laboratory Results: Laboratory Results 10/30/17 12:43 10/30/17 12:43 10/30/17 10/30/17 13:13 12:43 Smear Review By Yumiko HUGHES MD Patient ABO/Rh A POSITIVE Antibody Screen NEGATIVE Crossmatch IS Only See Detail Medications Given: Discontinued Medications Digoxin (Lanoxin) 125 mcg PO SUMOWEFR [facility] Stop: 04/28/18 15:14 Last Admin: 10/30/17 15:50 Dose: Not Given Ferrous Sulfate (Ferrous Sulfate) 325 mg PO DAILY [facility] Stop: 04/29/18 08:59 Last Admin: 10/31/17 09:06 Dose: 325 mg Furosemide (Lasix Injection) 20 mg IVP ONCE ONE Stop: 10/30/17 14:32 Last Admin: 10/30/17 16:36 Dose: 20 mg Furosemide (Lasix) 20 mg PO DAILY@12 DENZEL Stop: 04/29/18 11:59 Last Admin: 10/31/17 12:26 Dose: Not Given Furosemide (Lasix) 30 mg PO DAILY [facility] Stop: 04/29/18 08:59 Last Admin: 10/31/17 09:05 Dose: 30 mg Famotidine/Sodium Chloride (Pepcid 20 Mg (Premix)) 50 mls @ 200 mls/hr IV EDNOW ONE Stop: 10/30/17 13:04 Last Admin: 10/30/17 12:56 Dose: 50 mls Miscellaneous Medication (Adempas 2.5mg) 2.5 mg PO TID [facility]ZEL Stop: 04/28/18 15:59 Last Admin: 10/31/17 09:06 Dose: 2.5 mg Miscellaneous Medication (Opsumis 10mg) 10 mg PO HS DENZEL Stop: 04/28/18 20:59 Last Admin: 10/30/17 20:16 Dose: 10 mg Potassium Chloride (Klor-Con) 10 meq PO DAILY [facility] Stop: 04/29/18 08:59 Last Admin: 10/31/17 09:06 Dose: 10 meq Departure - Departure Disposition: [facility] Acute Clinical Impression: Generalized weakness Anemia Qualifiers: Anemia type: iron deficiency Iron deficiency anemia type: chronic blood loss Qualified Code(s): D50.0 - Iron deficiency anemia secondary to blood loss ( chronic) Condition: Fair
[2017-10-30 12:59] LABS: PLATELET COUNT 165 10^3/uL (150-400)
--- NOTE | 2017-10-30 13:01 | CPEKG ---
Heart Rate: 65 RR Interval: 923 P-R Interval: 153 QRSD Interval: 156 QT Interval: 464 QTC Interval: 483 P [place]: 0 QRS [place]: 269 T Wave [place]: 79 EKG Severity - ABNORMAL ECG - EKG Impression: VENTRICULAR-PACED RHYTHM Electronically Signed By: Anthony Hudson 30-Oct-2017 13:07:08
[2017-10-30 13:14] LABS: INR 1.15 (0.83-1.16); PROTIME(PATIENT) 14.9 SEC (12.0-15.0)
[2017-10-30] MEDS ORDERED: FUROSEMIDE 20 MG/2 ML VIAL IVP ONE (14:31)
[2017-10-30] MEDS ORDERED: ACETAMINOPHEN 325 MG TAB PO PRN (14:36)
[2017-10-30] MEDS ORDERED: LORazepam 0.5 MG TAB PO PRN (14:36)
[2017-10-30] MEDS ORDERED: traMADol 50 MG TAB PO PRN (14:36)
[2017-10-30] MEDS ORDERED: oxyCODONE IR 5 MG TAB PO PRN (14:36)
[2017-10-30] MEDS ORDERED: ONDANSETRON 4 MG/2 ML VIAL IVP PRN (14:36)
[2017-10-30] MEDS ORDERED: DIGOXIN 125 MCG TAB PO SCH (15:15)
--- NOTE | 2017-10-30 15:27 | GHP ---
[f rep st] HISTORY AND PHYSICAL DATE OF ADMISSION: 10/30/2017 CHIEF COMPLAINT: Weakness. 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 She recently had a diverticular bleed and was just discharged from the hospital on October 19. During that hospital ization, she had an EGD, colonoscopy, and a tagged red blood cell scan that were negative. Bleed was felt to be diverticular. Her Xarelto was stopped and she continues off Xarelto at this time. She c ontinued to bleed post discharge, but eventually the bleeding did stop. Her primary care doctor rece osvaldo heme checked her from below, and it was negative for ongoing blood loss. She is, however, havin g profound weakness, shortness of breath, and her oxygen needs have gone up to 8 L. Her primary care doctor checked an H and H, and it was low at 20 so she was referred to the hospital for transfusion. Her hospice agency is aware of her presentation to the ER, and hospice is being reversed for the pu rpose of this acute problem. PAST MEDICAL HISTORY: 1. 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 2. Diastolic congestive heart failure. 3. Chronic respiratory failure of 6 L. 4. Chronic kidney disease, 1.4-1.5. 5. Atrial fibrillation status post pacemaker. 6. History of recurrent PE and DVT. PAST SURGICAL HISTORY: Cholecystectomy. MEDICATIONS: Please see computer record for full detailed list. ALLERGIES: No known drug allergies. SOCIAL HISTORY: No smoking. No alcohol. She lives with her daughter. She is on home hospice. REVIEW OF SYSTEMS: Complete review of systems obtained. Review of systems negative on constitutiona l, HEENT, GI, pulmonary, cardiovascular, , hematology, musculoskeletal, endocrine, psych except for positives and negatives as in HPI. FAMILY HISTORY: Reviewed and noncontributory to presenting complaint. PHYSICAL EXAMINATION: GENERAL: Well-developed, well-nourished female in no acute distress. VITAL S IGNS: Temperature 37.3, pulse 79, blood pressure 113/53, satting 95% on 6 L. EYE: Normal conjuncti vae. Pupils reactive to light. ENT: Normal ears, nose. Hearing intact. Normal lips and teeth. O ropharynx moist. NECK: Trachea midline. No thyromegaly. CHEST: Normal respiratory effort. LUNGS : Clear to auscultation bilaterally. CARDIOVASCULAR: Regular rhythm. No murmur. No extremity elder ma. ABDOMEN: Soft, nontender. No hepatosplenomegaly. SKIN: Warm, dry, intact. No rash. MUSCULO SKELETAL: No cyanosis or clubbing. Strength 5/5 in upper and lower extremities. NEURO: Cranial ne rves intact. Normal sensation to light touch. PSYCH: Alert and oriented x3. Normal mood and affec t. Normal judgment and insight. Normal memory. LABORATORY DATA: White count 4.55, hematocrit 20.2, platelets 165. Sodium 140, potassium 4.3, chlor bassem 100, bicarb 35, BUN 27, creatinine 1.3, glucose 94. INR is 1.15. TEST DATA: EKG reviewed by me. My personal interpretation is paced rhythm. MEDICAL RECORDS REVIEW: I reviewed medical records including recent hospitalization for diverticular bleed as detailed above. ASSESSMENT/PLAN: 1. Acute blood loss anemia. Her bleeding has clinically stopped. I believe she is just catching up from her previous bleed. Will transfuse 2 units. 2. Recent diverticular bleed recently heme-negative as an outpatient, and her stool is no longer blo amadou. 3. Acute on chronic respiratory failure secondary to anemia. Oxygen going from 6 to 8 L. This will hopefully improve with transfusion. 4. End-stage pulmonary hypertension secondary to chronic thromboembolic disease. Hospice is on hold for the purposes of this acute hospitalization. 5. Chronic diastolic congestive heart failure. Will give a dose of intravenous Lasix in between uni ts of blood. 6. Recurrent pulmonary embolus and deep vein thrombosis. She is off anticoagulation due to her rece nt bleeding and hospice status. 7. Atrial fibrillation with pacemaker. This is stable. 8. Chronic kidney disease. Currently at baseline. CODE STATUS: DNR. ADMISSION STATUS: Will admit to observation. Reevaluate tomorrow ongoing need for hospitalization. DVT PROPHYLAXIS: Given her concerns of bleeding, will use SCDs only at this time. /[id number]/MODL
[2017-10-30] MEDS: RIOCIGUAT 2.5 MG PO SCH ×2 (16:37→20:16)
[2017-10-30] MEDS: MACITENTAN 10 MG PO SCH (20:16)
[2017-10-31 04:32] LABS: PLATELET COUNT 161 10^3/uL (150-400)
[2017-10-31] MEDS ORDERED: FUROSEMIDE 20 MG TAB PO SCH ×2 (09:00→12:00)
[2017-10-31] MEDS ORDERED: FERROUS SULFATE 325 MG TAB PO SCH (09:00)
[2017-10-31] MEDS ORDERED: POTASSIUM CL 10 MEQ TAB PO SCH (09:00)
[2017-10-31] MEDS: MACITENTAN 10 MG PO SCH (09:06)
[2017-10-31] MEDS: RIOCIGUAT 2.5 MG PO SCH (09:06)
--- NOTE | 2017-10-31 10:54 | ASMTCASEMG ---
Living Arrangements What is your living Answers: With Child(aleisha) arrangement? Who do you live with? Type Of Residence What kind of residence do Answers: House you live in? Discharge Plan Comments Coordination Status Comments Notes: Pt is a 87 y/o female admitted for anemia, weakness and a GI bleed. Needs are TBD at this time. Therapies have been ordered and awaiting recommendations. CM to follow. Plan: TBD Date Signed: 10/31/2017 10:54 AM Electronically Signed By:DEEPAK Seay
[2017-10-31 11:38] VITALS: BP 119/52
--- NOTE | 2017-10-31 12:17 | ASMTCMCOM ---
CM Note CM Note Notes: CM spoke Dr. Woodard and PAULA Kc regarding d/c POC. Pt is being discharged today with [facility]. CM spoke to Cecy at [facility] and she will re-establish pt w/ hospice services. DC orders sent to [facility]. CM available for changes. Plan: [facility] Date Signed: 10/31/2017 12:16 PM Electronically Signed By:DEEPAK Seay
--- NOTE | 2017-10-31 12:17 | ASDISCHSUM ---
Discharge Information Plan Status:Hospice-Home Medically Cleared to Leave:10/31/2017 Discharge Date:10/31/2017 CM D/C Disposition: ADT D/C Disposition:Hospice Home Projected Discharge Date:10/31/2017 11:00 AM Transportation at D/C: Discharge Delay Reason: Follow-Up Date:10/31/2017 11:00 AM Discharge Slot: Final Diagnosis: Placement Information Referral Type:*Hospice Referral ID:[id number] Provider Name:[facility] Address 1:[address] Phone Number: Address 2: Fax Number: City:[place] Selection Factors: State:[place] Patient Contact Information Contact Name:ALAINA Relationship:Daughter Address:[address] Work Phone: City:[place] [facility] Phone: [facility]/Zip Code:[place] [address] Email: Financial Information Financial Class:Medicare Primary Plan Desc:MEDICARE OUTPATIENT Primary Plan Number:[id number] Secondary Plan Desc:[employer]/MDR SUPPLEMENT Secondary Plan Number:[id number] Assessment Information [facility] Initial CM Assessment Living Arrangements What is your living Answers: With Child(aleisha) arrangement? Who do you live with? Type Of Residence What kind of residence do Answers: House you live in? Discharge Plan Comments Coordination Status Comments Notes: Pt is a 87 y/o female admitted for anemia, weakness and a GI bleed. Needs are TBD at this time. Therapies have been ordered and awaiting recommendations. CM to follow. Plan: TBD Date Signed: 10/31/2017 10:54 AM Electronically Signed By:DEEPAK Seay [facility] CM Progress Note CM Note CM Note Notes: CM spoke Dr. Woodard and PAULA Kc regarding d/c POC. Pt is being discharged today with [facility]. CM spoke to Cecy at [facility] and she will re-establish pt w/ hospice services. DC orders sent to [facility]. CM available for changes. Plan: [facility] Date Signed: 10/31/2017 12:16 PM Electronically Signed By:DEEPAK Seay Intervention Information Intervention Type:*SHAW-Signed Date of Service:10/31/2017 10:32 AM Patient Type:Observation Staff Member:Analilia Moore Hours: Discipline: Severity: Comment:
--- NOTE | 2017-10-31 12:18 | ASMTLACE ---
LACE Length of stay for Answers: 1 day current admission Acuity / Level of Answers: No Care: Did the patient have an inpatient admission? Comorbidities - select Answers: Cerebrovascular disease all that apply (CVA, TIA, aneurysms, vasc ular dementia) Congestive heart failure Palliative care / End of life trajectory Previous myocardial infarction Other Notes: Pulm HTN # of Emergency department Answers: 3-4 visits in the last 6 months Score: 11 Date Signed: 10/31/2017 12:17 PM Electronically Signed By:DEEPAK Seay
--- NOTE | 2017-10-31 18:26 | GDS ---
[f rep st] DISCHARGE SUMMARY DISCHARGE DIAGNOSES: 1. Acute blood loss anemia. 2. Recent diverticular bleed. 3. Acute on chronic respiratory failure. 4. End-stage pulmonary hypertension due to chronic thromboembolic disease. 5. Chronic diastolic congestive heart failure. 6. Recurrent pulmonary embolism and deep venous thrombosis. 7. Atrial fibrillation with pacemaker. 8. Chronic kidney disease. HISTORY: Ida is an 87-year-old female on hospice care for end-stage pulmonary hypertension. Her right ventricular systolic pressure is 98, and her baseline oxygen requirement of 6 L. The etiology of her pulmonary hypertension is chronic thromboembolic disease. Despite being on hospice, she did desire treatment for recent GI bleed. She had a recent hospitalization where EGD, colonoscopy and ta gged white blood cell scan were performed and were all unremarkable. Her bleed was felt to be divert icular. Her Xarelto was stopped and she continues to not take it. She did continue to have bloody s tool post discharge, but eventually it did stop. Her primary care doctor recently heme checked her f rom below, and it was negative. However, she was having profound weakness, shortness of breath and h er oxygen requirement went up to 8 L. her outpatient hemoglobin and hematocrit showed a hematocrit o f 20, so she was referred to the hospital for transfusion. Her hospice agency was aware of her prese ntation in the emergency room and agreed to reversing Hospice for the purpose of this acute problem. She was admitted under observation. She got 2 units of blood. Her hemoglobin and hematocrit came u p appropriately. She fell immediately much better. She was back down her 6 L oxygen requirement and desired to discharge home again with hospice reinstituted. DISCHARGE MEDICATIONS: Please see computerized record for full detailed list. There are no new medi cations at the time of hospital discharge. ADDITIONAL DISCHARGE INSTRUCTIONS: Continue home hospice. /[id number]/MODL
== END 2017-10-31 12:27 | disposition hospice, home (50) ==
LOC: EDUNIT# → F2W 15:16
PROVIDERS: ADMIT Internal Medicine; ATTEND Internal Medicine
PROC: 30233N1 Transfusion of Nonautologous Red Blood Cells into Peripheral Vein, Percutaneous Approach (ICD-10-PCS; principal; 2017-10-30)
DX: D62 Acute posthemorrhagic anemia (principal); J96.20 Acute and chronic respiratory failure, unspecified whether with hypoxia or hypercapnia; I27.24 Chronic thromboembolic pulmonary hypertension; I50.32 Chronic diastolic (congestive) heart failure; I26.99 Other pulmonary embolism without acute cor pulmonale; I48.91 Unspecified atrial fibrillation; N18.9 Chronic kidney disease, unspecified; I11.0 Hypertensive heart disease with heart failure; I50.84 End stage heart failure; Z79.01 Long term (current) use of anticoagulants; Z95.0 Presence of cardiac pacemaker; I25.2 Old myocardial infarction
CPT/HCPCS: 36430; 71045; 93005; 96374; 99291; G0378; J1940; P9016

== ENCOUNTER 2018-04-03 15:08 | Outpatient (CLI) | payer OTHER, MEDICARE ==
[2018-04-03] MEDS ORDERED: ACETAMINOPHEN 325 MG TAB PO ONE (15:30)
== END 2018-04-03 18:00 | disposition home or self-care (01) ==
LOC: FOBOP 15:08
PROVIDERS: ATTEND Internal Medicine Hematology & Oncology
DX: K92.2 Gastrointestinal hemorrhage, unspecified (principal)
CPT/HCPCS: 36430; P9016

== ENCOUNTER 2018-05-22 10:19 | Outpatient (CLI) | payer OTHER, MEDICARE ==
[2018-05-22] MEDS ORDERED: diphenhydrAMINE 25 MG CAP PO ONE ×2 (10:37→11:00)
[2018-05-22] MEDS ORDERED: ACETAMINOPHEN 325 MG TAB ONE (10:37)
[2018-05-22] MEDS ORDERED: ACETAMINOPHEN 325 MG TAB PO ONE (11:00)
[2018-05-22 14:24] VITALS: BP 118/45
== END 2018-05-22 14:00 | disposition home or self-care (01) ==
LOC: FOBOP 10:19
PROVIDERS: ATTEND Internal Medicine Hematology & Oncology
PROC: 30233N1 Transfusion of Nonautologous Red Blood Cells into Peripheral Vein, Percutaneous Approach (ICD-10-PCS; principal; 2018-05-22)
DX: D50.9 Iron deficiency anemia, unspecified (principal)
CPT/HCPCS: 36430; P9016

== ENCOUNTER 2018-06-08 12:05 | Observation (INO) | payer OTHER, MEDICARE ==
--- NOTE | 2018-06-08 12:26 | EDPHY ---
H & P Time Seen by Provider: 06/08/18 12:26 HPI/ROS: CHIEF COMPLAINT: Rectal bleeding and feeling faint HISTORY OF PRESENT ILLNESS: History of previous GI bleed requiring transfusion , the last time this happened was in the fall. Presents with 3 weeks of rectal bleeding. She has dark stool with red blood in the toilet and a little bit of bright red blood occasionally. She today feels like she has dizziness and lightheadedness while sitting or standing. She feels a little bit like she is going to faint. She has chronic shortness of breath but no chest pain today. Symptoms moderate, not associated with abdominal pain or vomiting. Feeling faint is definitely positional. REVIEW OF SYSTEMS: Eye: no change in vision ENT: no sore throat Cardiac: no chest pain or syncope Pulmonary: HPI Abdomen: HPI Musculoskeletal: no back pain Skin: no rash Neuro: no headache Constitutional: no fever : no urinary symptoms A comprehensive 10 point review of systems is otherwise negative aside from elements mentioned in the history of present illness. PAST MEDICAL HISTORY: Discharge summary dated 10/31/2017 personally reviewed includes diverticular bleed with anemia, end-stage pulmonary hypertension, chronic diastolic CHF, recurrent PE and DVT, atrial fibrillation, chronic kidney disease Social history: Here with family General Appearance: Alert and conversant, cooperative. Eyes: No scleral icterus. ENT, Mouth: Normal mucous membranes. Respiratory: Mildly tachypneic decreased lung sounds bilaterally. Cardiovascular: Regular rate and rhythm. Gastrointestinal: Abdomen is soft and non tender. Neurological: Alert, face symmetric, normal motor and sensory in extremities. Skin: Warm and dry, no rashes. Musculoskeletal: No peripheral edema. Psychiatric: Not agitated. Emergency Department course/MDM: Presents with symptoms likely recurrent lower GI bleed. Plan for CBC chemistry PT PTT and type and screen. Hematocrit of 24 which is the level at which in the past she gets transfused. Transfusion discussed and consented. 1324: Results discussed with patient and family apparently her goals are around hemoglobin of 9 or hematocrit 30. Smoking Status: Never smoked Constitutional: Initial Vital Signs Temperature (C) 36.8 C 06/08/18 12:11 Heart Rate 63 06/08/18 12:11 Respiratory Rate 18 06/08/18 12:11 Blood Pressure 128/56 H 06/08/18 12:11 O2 Sat (%) 96 06/08/18 12:11 O2 Delivery Mode Nasal Cannula O2 (L/minute) 8 Allergies/Adverse Reactions: No Known Allergies Allergy (Verified 06/08/18 12:10) Home Medications: Medication Instructions Recorded Adempas 2.5mg 2.5 mg PO TID 10/30/17 Carboxymethylcellulose 1% [Refresh 1 drop EACHEYE DAILY PRN 10/30/17 Celluvisc (*)] Digoxin [Lanoxin 125 mcg (RX)] 125 mcg PO SUMOWEFR@09 10/30/17 Ferrous Sulfate [Ferrous Sulf 325 325 mg PO DAILY 10/30/17 MG (*)] Furosemide [Lasix 20 MG (*)] 20 mg PO DAILY 10/30/17 Herbals/Supplements -Info Only 1 ea PO DAILY 10/30/17 Multivitamins [Multivitamin (*)] 1 each PO DAILY 10/30/17 Opsumis 10mg 10 mg PO HS 10/30/17 Potassium Cl [Klor-Con 10 meq (RX)] 10 meq PO DAILY 10/30/17 Acetaminophen [Tylenol ES 500 mg 1,000 mg PO DAILY PRN 06/08/18 (*)] Spironolactone [Aldactone 25 MG 12.5 mg PO DAILY 06/08/18 (*)] Medical Decision Making Differential Diagnosis: Differential for feeling faint considered including but not limited to dysrhythmia, anemia, viral syndrome, metabolic abnormality Consult/Admit Bed Type: [place] [id number] - Data Points Laboratory Results: Laboratory Results 06/08/18 12:30 06/08/18 12:30 06/08/18 06/08/18 06/08/18 12:30 12:30 12:30 WBC RBC Hgb Hct MCV MCH MCHC RDW Plt Count MPV Neut % (Auto) Lymph % (Auto) [place] % (Auto) Eos % (Auto) Baso % (Auto) Nucleat RBC Rel Count Absolute Neuts (auto) Absolute Lymphs (auto) Absolute Monos (auto) Absolute Eos (auto) Absolute Basos (auto) Absolute Nucleated RBC Immature Gran % Immature Gran # PT 22.0 SEC H SEC (12.0-15.0) INR 1.91 H (0.83-1.16) APTT 36.4 SEC SEC (23.0-38.0) Sodium 141 mEq/L mEq/L (135-145) Potassium 4.5 mEq/L mEq/L (3.5-5.2) Chloride 105 mEq/L mEq/L (97-110) Carbon Dioxide 30 mEq/l mEq/l (22-31) Anion Gap 6 mEq/L mEq/L (6-14) BUN 42 mg/dL H mg/dL (7-23) Creatinine 1.4 mg/dL H mg/dL (0.6-1.0) Estimated GFR 35 Glucose 104 mg/dL H mg/dL (70-100) Calcium 9.3 mg/dL mg/dL (8.5-10.4) Digoxin 0.5 ng/mL L ng/mL (0.8-2.0) Patient ABO/Rh A POSITIVE Antibody Screen NEGATIVE Crossmatch IS Only See Detail 06/08/18 12:30 WBC 4.41 10^3/uL 10^3/uL (3.80-9.50) RBC 2.57 10^6/uL L 10^6/uL (4.18-5.33) Hgb 7.6 g/dL L g/dL (12.6-16.3) Hct 24.7 % L % (38.0-47.0) MCV 96.1 fL fL (81.5-99.8) MCH 29.6 pg pg (27.9-34.1) MCHC 30.8 g/dL L g/dL (32.4-36.7) RDW 14.7 % % (11.5-15.2) Plt Count 193 10^3/uL 10^3/uL (150-400) MPV 9.8 fL fL (8.7-11.7) Neut % (Auto) 68.5 % % (39.3-74.2) Lymph % (Auto) 21.5 % % (15.0-45.0) [place] % (Auto) 6.6 % % (4.5-13.0) Eos % (Auto) 2.7 % % (0.6-7.6) Baso % (Auto) 0.5 % % (0.3-1.7) Nucleat RBC Rel Count 0.0 % % (0.0-0.2) Absolute Neuts (auto) 3.02 10^3/uL 10^3/uL (1.70-6.50) Absolute Lymphs (auto) 0.95 10^3/uL L 10^3/uL (1.00-3.00) Absolute Monos (auto) 0.29 10^3/uL L 10^3/uL (0.30-0.80) Absolute Eos (auto) 0.12 10^3/uL 10^3/uL (0.03-0.40) Absolute Basos (auto) 0.02 10^3/uL 10^3/uL (0.02-0.10) Absolute Nucleated RBC 0.00 10^3/uL 10^3/uL (0-0.01) Immature Gran % 0.2 % % (0.0-1.1) Immature Gran # 0.01 10^3/uL 10^3/uL (0.00-0.10) PT INR APTT Sodium Potassium Chloride Carbon Dioxide Anion Gap BUN Creatinine Estimated GFR Glucose Calcium Digoxin Patient ABO/Rh Antibody Screen Crossmatch IS Only Departure - Departure Disposition: [facility] In[facility] Acute Clinical Impression: Anemia, Bloody stool Condition: Good
[2018-06-08 12:47] LABS: PLATELET COUNT 193 10^3/uL (150-400)
[2018-06-08 12:56] LABS: INR 1.91 (0.83-1.16)
[2018-06-08] MEDS ORDERED: NS 1,000 ML IV SCH (14:45)
[2018-06-08] MEDS ORDERED: ACETAMINOPHEN 325 MG TAB PO PRN (14:45)
[2018-06-08] MEDS ORDERED: CARBOXYMETHYLCELLULOSE 1% 0.4 ML DROPERETTE EACHEYE PRN (14:47)
--- NOTE | 2018-06-08 16:13 | PDGENHP ---
History and Physical - Chief Complaint blood in stool, fatigue - History of Present Illness 87yo F with atrial fibrillation on xarelto, remote DVT/PE, chronic severe pulmonary HTN, CKD, GI bleeding with chronic anemia presents with approximately 2 weeks of black stools. Shannan provides some additional history. Dark stools have been associated with blood in toilet bowl and blood on toilet paper. Denies abdominal pain. Has 1-4 BMs/day. She had GIB 10/2017 at which time underwent EGD (unremarkable), colonoscopy (showed hemorrhoids, diverticulosis), tagged RBC scan without identifiable source. Her xarelto was held for 2 weeks before resuming. She developed more blood in her stools sometime in the fall. This was managed as an outpatient and she stopped her xarelto for a week. She required 1 unit of PRBCs around this time. She has been seeing Dr Melissa who has been giving her iron infusions periodically. She had a capsule endoscopy study 2 weeks ago with no identifiable source. Over the last 2 weeks, she has had the aforementioned symptoms as well as progressively worsening fatigue. She last took her xarelto yesterday evening. She has been stable on her 8L/min of oxygen. In the ED, her hemoglobin was noted to be 7.6, down from baseline around 9.0. She was type and screened and a PRBC transfusion was ordered; however, this cannot be completed in the ED unless emergent so she is being admitted for observation of this transfusion. I discussed staying overnight with patient and daughter with GI consultation in the AM. They are not interested in this but would rather follow up as an outpatient with Dr Melissa and Dr Shanks (GI). History Information - Allergies/Home Medication List Allergies/Adverse Reactions: No Known Allergies Allergy (Verified 06/08/18 12:10) Home Medications: Adempas 2.5mg 2.5 mg PO TID 10/30/17 [Last Taken 06/08/18] Carboxymethylcellulose 1% [Refresh Celluvisc (*)] 1 drop EACHEYE DAILY PRN 10/30 [Last Taken Unknown] Digoxin [Lanoxin 125 mcg (RX)] 125 mcg PO SUMOWEFR@10/30/17 [Last Taken 06/08] Ferrous Sulfate [Ferrous Sulf 325 MG (*)] 325 mg PO DAILY 10/30/17 [Last Taken 06/08/18] Furosemide [Lasix 20 MG (*)] 20 mg PO DAILY 10/30/17 [Last Taken 06/08/18] Herbals/Supplements -Info Only 1 ea PO DAILY 10/30/17 [Last Taken Unknown] Multivitamins [Multivitamin (*)] 1 each PO DAILY 10/30/17 [Last Taken 06/08/18] Opsumis 10mg 10 mg PO HS 10/30/17 [Last Taken 06/07/18] Potassium Cl [Klor-Con 10 meq (RX)] 10 meq PO DAILY 10/30/17 [Last Taken ] Acetaminophen [Tylenol ES 500 mg (*)] 1,000 mg PO DAILY PRN 06/08/18 [Last Taken Unknown] Spironolactone [Aldactone 25 MG (*)] 12.5 mg PO DAILY 06/08/18 [Last Taken 06/08] I have personally reviewed and updated: family history, medical history, social history, surgical history - Past Medical History Additional medical history: chronic severe pulmonary HTN, chronic hypoxemic respiratory failure on 8L, previous DVT and PE (1984), chronic diastolic CHF, permanent afib s/p AV tyra ablation and PPM, CKD (baseline Cr 1.5), 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, GI bleeding, chronic iron deficient anemia - Surgical History Additional surgical history: afib ablation and pacemaker placement, cholecystectomy - Family History Positive for: non-pertinent - Social History Smoking Status: Never smoked Alcohol Use: None Drug Use: None Additional social history: Daughter at bedside Review of Systems Review of Systems: ROS: 10pt was reviewed & negative except for what was stated in HPI & below Physical Exam Physical Exam: Temp Pulse Resp BP Pulse Ox 36.8 C 62 20 130/51 H 95 06/08/18 14:48 06/08/18 14:48 06/08/18 14:48 06/08/18 14:48 06/08/18 14:48 Constitutional: no apparent distress, chronically ill appearing Eyes: PERRL, pale conjunctiva Ears, Nose, Mouth, Throat: moist mucous membranes Cardiovascular: regular rate and rhythym, no murmur, rub, or gallop, No edema Respiratory: no respiratory distress, clear to auscultation, reduced air movement, inspiratory crackles Gastrointestinal: normoactive bowel sounds, soft, non-tender abdomen, no palpable masses Genitourinary: no bladder fullness, no bladder tenderness Skin: warm, no rashes or abrasions, no fluctuance, no induration, No mottled Musculoskeletal: full muscle strength, no muscle tenderness, normal joint ROM, no joint effusions Neurologic: AAOx3 Psychiatric: interacting appropriately Lab Data & Imaging Review 06/08/18 12:30 06/08/18 12:30 WBC 4.41 10^3/uL (3.80-9.50) 06/08/18 12:30 RBC 2.57 10^6/uL (4.18-5.33) L 06/08/18 12:30 Hgb 7.6 g/dL (12.6-16.3) L 06/08/18 12:30 Hct 24.7 % (38.0-47.0) L 06/08/18 12:30 MCV 96.1 fL (81.5-99.8) 06/08/18 12:30 MCH 29.6 pg (27.9-34.1) 06/08/18 12:30 MCHC 30.8 g/dL (32.4-36.7) L 06/08/18 12:30 RDW 14.7 % (11.5-15.2) 06/08/18 12:30 Plt Count 193 10^3/uL (150-400) 06/08/18 12:30 MPV 9.8 fL (8.7-11.7) 06/08/18 12:30 Neut % (Auto) 68.5 % (39.3-74.2) 06/08/18 12:30 Lymph % (Auto) 21.5 % (15.0-45.0) 06/08/18 12:30 [place] % (Auto) 6.6 % (4.5-13.0) 06/08/18 12:30 Eos % (Auto) 2.7 % (0.6-7.6) 06/08/18 12:30 Baso % (Auto) 0.5 % (0.3-1.7) 06/08/18 12:30 Nucleat RBC Rel Count 0.0 % (0.0-0.2) 06/08/18 12:30 Absolute Neuts (auto) 3.02 10^3/uL (1.70-6.50) 06/08/18 12:30 Absolute Lymphs (auto) 0.95 10^3/uL (1.00-3.00) L 06/08/18 12:30 Absolute Monos (auto) 0.29 10^3/uL (0.30-0.80) L 06/08/18 12:30 Absolute Eos (auto) 0.12 10^3/uL (0.03-0.40) 06/08/18 12:30 Absolute Basos (auto) 0.02 10^3/uL (0.02-0.10) 06/08/18 12:30 Absolute Nucleated RBC 0.00 10^3/uL (0-0.01) 06/08/18 12:30 Immature Gran % 0.2 % (0.0-1.1) 06/08/18 12:30 Immature Gran # 0.01 10^3/uL (0.00-0.10) 06/08/18 12:30 PT 22.0 SEC (12.0-15.0) H 06/08/18 12:30 INR 1.91 (0.83-1.16) H 06/08/18 12:30 APTT 36.4 SEC (23.0-38.0) 06/08/18 12:30 Sodium 141 mEq/L (135-145) 06/08/18 12:30 Potassium 4.5 mEq/L (3.5-5.2) 06/08/18 12:30 Chloride 105 mEq/L (97-110) 06/08/18 12:30 Carbon Dioxide 30 mEq/l (22-31) 06/08/18 12:30 Anion Gap 6 mEq/L (6-14) 06/08/18 12:30 BUN 42 mg/dL (7-23) H 06/08/18 12:30 Creatinine 1.4 mg/dL (0.6-1.0) H 06/08/18 12:30 Estimated GFR 35 06/08/18 12:30 Glucose 104 mg/dL (70-100) H 06/08/18 12:30 Calcium 9.3 mg/dL (8.5-10.4) 01/20/19 12:30 Digoxin 0.5 ng/mL (0.8-2.0) L 06/08/18 12:30 Patient ABO/Rh A POSITIVE 06/08/18 12:30 Antibody Screen NEGATIVE 06/08/18 12:30 Crossmatch IS Only See Detail 06/08/18 12:30 Assessment & Plan Assessment: 87yo F with atrial fibrillation on xarelto, remote DVT/PE, chronic severe pulmonary HTN on chronic O2, CKD, GI bleeding with chronic anemia presents with approximately 2 weeks of black stools and worsening fatigue found to be more anemic than usual. Plan: 1. Acute on chronic anemia: Due to occult GIB. Has had EGD, colonoscopy, tagged RBC scan, capsule endoscopy with no obvious source except diverticulosis. - Getting PRBC transfusion currently - Hold anticoagulation. I suggested she stop for at least 1 week and assess. If ongoing blood in stools, she should continue to hold and follow up with outpatient provider - Discussed GI consultation with patient and daughter. They are not interested but would rather follow with her outpatient upstairs maid, Dr Shanks - Additional endoscopic procedures are high risk with her high baseline oxygen requirement, would require anesthesia assistance - CT angiography is a consideration, but would need careful monitoring of her creatinine 2. Fatigue: Related to worsening anemia. 3. Hemorrhoids: Noted on prior colonoscopy. - Hydrocortisone suppositories 4. Atrial fibrillation: Rate controlled. Holding xarelto as above. Continue digoxin. 5. H/o DVT/PE: Remote (1984). Management as above. 6. Chronic hypoxemic respiratory failure: At baseline 8L/min. 7. 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 Chronic diastolic CHF: Compensated. Home meds. 9. CKD: At baseline Cr. Avoid nephrotoxins. VTE ppx: SCDs Diet: regular Code: DNR/DNI. She has previously been in hospice but is no longer. Dispo: Admit under observation. Patient would like to leave this evening after PRBC transfusion, which is reasonable given her stable hemodynamics and her hematocrit wasn't that far off her baseline. She is also declining any further intervention for the time being. She has adequate follow up with Dr Melissa and Dr Shanks.
[2018-06-08] MEDS ORDERED: HYDROCORTISONE ACETATE 25 MG SUPP PR PRN (16:20)
--- NOTE | 2018-06-08 16:31 | PDDCSUM ---
Discharge Summary Discharge Summary: Date of Admission: 06/08/2018 Date of Discharge: 06/08/2018 Studies: none Consultants: none Discharge Diagnoses: 1. Acute on chronic anemia 2. Fatigue 3. Hemorrhoids 4. Atrial fibrillation s/p ablation and PPM 5. H/o DVT/PE 6. Severe pulmonary HTN with chronic hypoxic respiratory failure on 8L/min 7. CKD, creatinine at baseline 1.5 8. Chronic diastolic CHF Brief Hospital Course: 87yo F with atrial fibrillation on xarelto, remote DVT/PE, chronic severe pulmonary HTN on chronic O2 at 8L, CKD, recurrent GI bleeding with chronic anemia presents with approximately 2 weeks of black stools and worsening fatigue found to have a hematocrit of 25 when it is usually 28. She was transfused 1 unit PRBC. I discussed GI consultation for further evaluation and diagnostics but patient and daughter declined this. She had a GIB and underwent EGD, colonoscopy, tagged RBC scan during a hospitalization 10/2017 with no evidence of bleeding but did find diverticuli. She also had a capsule endoscopy 2 weeks ago with no source. She is aware that endoscopic procedures will be high risk given her high oxygen requirements. I have instructed her to stop her xarelto (last took yesterday) and see if the bleeding resolves. She did not want to stay in the hospital for any additional intervention other than the transfusion and I think this is reasonable given her stable hemodynamics and chronicity of this process. She will follow up with Dr Melissa (has been receiving Fe infusions from him) and Dr Shanks of GI. Medications: Please refer to EMR for complete list. I sent prescription for hydrocortisone suppository. Follow Up Plan: 1. To see Dr Melissa or Christina within 1 week 2. Stop xarelto until follow up Physical Exam: Vitals reviewed, normal HR and BP. Alert and oriented, frail appearing. RRR with systolic murmur, lungs with some inspiratory crackles, abdomen soft and nontender, no leg edema, no rashes.
[2018-06-08 17:55] VITALS: BP 129/68
[2018-06-08] MEDS ORDERED: [UNRECOGNIZED DRUG - OTHER] PO SCH (21:00)
[2018-06-08] MEDS ORDERED: PANTOPRAZOLE SODIUM 40 MG VIAL IVP SCH ×2 (21:00)
[2018-06-09] MEDS ORDERED: DIGOXIN 125 MCG TAB PO SCH (09:00)
[2018-06-09] MEDS ORDERED: FERROUS SULFATE 325 MG TAB PO SCH (09:00)
== END 2018-06-08 18:10 | disposition home or self-care (01) ==
LOC: F3E 16:21
PROVIDERS: ADMIT Student in an Organized Health Care Education/Training Program; ATTEND Internal Medicine
PROC: 30233N1 Transfusion of Nonautologous Red Blood Cells into Peripheral Vein, Percutaneous Approach (ICD-10-PCS; principal; 2018-06-08)
DX: D50.0 Iron deficiency anemia secondary to blood loss (chronic) (principal); R53.83 Other fatigue; I48.91 Unspecified atrial fibrillation; N18.9 Chronic kidney disease, unspecified; I27.20 Pulmonary hypertension, unspecified; J96.11 Chronic respiratory failure with hypoxia; I50.32 Chronic diastolic (congestive) heart failure; K64.9 Unspecified hemorrhoids; Z86.711 Personal history of pulmonary embolism; Z86.718 Personal history of other venous thrombosis and embolism; Z79.01 Long term (current) use of anticoagulants
CPT/HCPCS: 36430; G0378; P9016